=== PATIENT | male | born 1960 | race African-American/Black ===

== ENCOUNTER 2017-03-20 22:40 | Inpatient (IN) | payer OTHER, MEDICARE, MEDICAID ==
[~2017-03-20] VITALS: Ht 165.1 cm; Wt 84.4 kg
--- NOTE | 2017-03-20 22:40 | NUR ---
to bed 3bib paramedics c/o sob and generalized weakness. pt aaox4 no acute distress noted, resp even and unlabored. lung sounds deminishaed bilaterally on auscultation. place pt on cardiac monitoring, continuous pox, o2@2l/nc. pending er md cameron.
--- NOTE | 2017-03-20 22:55 | NUR ---
started sl 18g to L forearm, blood drawn sent to lab.
[2017-03-20 23:17] LABS: BASOPHILS % (AUTO) 0.5 % (0.0-2.0); EOSINOPHILS # (AUTO) 0.4 /CMM (0.0-0.7); HEMATOCRIT 25 % (39-51); HEMOGLOBIN 7.9 g/dL (13.5-17.5); LYMPHOCYTES # (AUTO) 0.5 /CMM (0.8-4.8); LYMPHOCYTES % (AUTO) 10.1 % (20.0-44.0); MEAN CORPUSCULAR HEMOGLOBIN 28 PG (26.0-33.0); MEAN CORPUSCULAR HGB CONC 31 g/dl (31.0-36.0); MEAN CORPUSCULAR VOLUME 90 fL (80-96); MONOCYTES # (AUTO) 0.7 /CMM (0.1-1.30); NEUTROPHILS # (AUTO) 3.6 /CMM (1.8-8.9); NEUTROPHILS % (AUTO) 68.4 % (43.0-81.0); PLATELET COUNT (AUTO) 182 /CMM (150-450); RDW COEFFICIENT OF VARIATION 20.2 (11.5-15.0); WHITE BLOOD COUNT (AUTO) 5.3 K/uL (4.3-11.0)
[2017-03-20 23:30] LABS: SERUM AMMONIA < 10 umol/L (11-32)
[2017-03-20 23:31] LABS: CALCIUM, SERUM 8.3 mg/dL (8.5-10.1); CARBON DIOXIDE 18 mmol/L (21-32); CHLORIDE 109 mmol/L (98-107); CREATININE 3.6 mg/dL (0.6-1.3); GFR 18 mL/min (>60); GLUCOSE 98 mg/dL (74-106); POTASSIUM 5.8 mmol/L (3.5-5.1); SODIUM SERUM 139 mmol/L (136-145); UREA NITROGEN, BLOOD 36 mg/dL (7-18)
[2017-03-20 23:33] LABS: LACTIC ACID 1.2 mmol/L (0.4-2.0)
[2017-03-20 23:34] LABS: TROPONIN I 0.063 ng/mL (0.00-0.056)
[2017-03-20 23:40] LABS: ALANINE AMINOTRANSFERASE 16 U/L (12-78); ALBUMIN 3.1 g/dL (3.4-5.0); ALKALINE PHOSPHATASE 105 U/L (46-116); ASPARTATE AMINOTRANSFERASE 17 U/L (15-37); BILIRUBIN,DIRECT 0.4 mg/dL (0.0-0.2); BILIRUBIN,TOTAL 1.6 mg/dL (0.2-1.0); LIPASE 192 U/L (73-393); TOTAL PROTEIN, SERUM 6.6 g/dL (6.4-8.2)
[2017-03-20 23:41] LABS: INR 1.18 (0.87-1.13); PROTHROMBIN TIME 12.8 SECS (9.5-12.7)
[2017-03-21] VITALS (14 sets, daily range): BP systolic 98–121; BP diastolic 69–92
[2017-03-21] MEDS ORDERED: ASPIRIN 325 MG TABLET PO ONE
[2017-03-21] MEDS ORDERED: SODIUM POLYSTYRENE SULFONATE 15 G/60 ML BOTTLE PO ONE
[2017-03-21 00:06] LABS: B-TYPE NATRIURETIC PEPTIDE 31162 PG/ML (0-125)
[2017-03-21] MEDS ORDERED: SODIUM POLYSTYRENE SULFONATE 15 G/60 ML BOTTLE ONE (00:14)
[2017-03-21] MEDS ORDERED: ASPIRIN 325 MG TABLET ONE (00:14)
--- NOTE | 2017-03-21 00:53 | NUR ---
report called to teleprinter installer JV. pending hospital admission.
[2017-03-21 00:54] LABS: BAND % (MANUAL) 2 % (0.0-5.0); EOSINOPHILS % (MANUAL) 9 % (0-4); LYMPHOCYTES % (MANUAL) 18 % (16-48); MONOCYTES % (MANUAL) 3 % (0-11.0); NEUTROPHILS % (MANUAL) 68 (42-76)
[2017-03-21 00:55] LABS: ANISOCYTOSIS 3+; HYPOCHROMASIA 1+; PLATELET ESTIMATE GIANT PLATELET SEEN
--- NOTE | 2017-03-21 01:08 | NUR ---
gallbladder julian done.
--- NOTE | 2017-03-21 01:13 | NUR ---
er talking to dr. romero regarding pt admission. will transport pt via acls protocol.
[2017-03-21] MEDS ORDERED: IPRA3AMP IH (01:24)
[2017-03-21] MEDS ORDERED: CARV25TA PO (01:24)
[2017-03-21] MEDS ORDERED: AMIO200T2 PO (01:24)
[2017-03-21] MEDS ORDERED: APIX2.5T PO (01:24)
[2017-03-21] MEDS ORDERED: AMLO5TAB2 PO (01:24)
[2017-03-21] MEDS ORDERED: HYDR-4077 PO (01:24)
[2017-03-21] MEDS ORDERED: TAMS0.4C34 PO (01:24)
[2017-03-21] MEDS ORDERED: ALLO300T2 PO (01:24)
[2017-03-21] MEDS ORDERED: POTA20TA83 PO (01:24)
[2017-03-21] MEDS ORDERED: HYDR-3326 PO (01:24)
[2017-03-21] MEDS ORDERED: FAMO20TA8 PO (01:24)
[2017-03-21] MEDS ORDERED: ISOS60TA4 PO (01:24)
[2017-03-21] MEDS ORDERED: IV SET PRIMARY 1 EA INFUS.SET MC ONE (01:25)
[2017-03-21] MEDS ORDERED: PIPERACILLIN /TAZOBACTAM 3.375 G VIAL IV ONE (01:25)
[2017-03-21] MEDS ORDERED: PIPERACILLIN /TAZOBACTAM 3.375 G in IV D5W 50 ML IV ONE (01:30)
--- NOTE | 2017-03-21 02:00 | NUR ---
SANDWICH ARTIST NOTES RECEIVED PT FROM ER, PT IS AWAKE, A/O X 3 , VERBALLY RESPONSIVE. NO DISTRESS, NO SOB NOTED. ON 02 VIA NC @ 3LPM , RAGHAV WELL. O2 SATURATION IS 95 % AT THIS TIME. IV SITE ON LFA G # 18 INTACT AND PATENT . NO S/S OF INFILTRATION NOTED. BODY ASSESSMENT DONE. SKIN IS INTACT. BED ON LOWEST LEVEL. SAFETY PRECAUTIONS OBSERVED. ALL NEEDS ATTENDED. KEPT COMFORTABLE. CALL LIGHT WITHIN REACH . WILL CONTINUE TO MONITOR.
[2017-03-21] MEDS ORDERED: ZOLPIDEM TARTRATE 5 MG TABLET PO PRN (03:00)
[2017-03-21] MEDS ORDERED: ONDANSETRON HCL/PF 4 MG/2 ML VIAL IV PRN (03:00)
[2017-03-21] MEDS: NITROGLYCERIN 30 GM TUBE TP SCH ×4 (06:00→17:31)
--- NOTE | 2017-03-21 06:57 | NUR ---
SENIOR ENGINEERING SPECIALIST NOTES PT IN BED, RESTING COMFORTABLY AT THIS TIME, A/O X 3 , VERBALLY RESPONSIVE. AT BED SIDE. NO DISTRESS, NO SOB NOTED. ON 02 VIA NC @ 3LPM , RAGHAV WELL. O2 SATURATION IS 97 % AT THIS TIME. IV SITE ON LFA G # 18 INTACT AND PATENT . NO S/S OF INFILTRATION NOTED. BED ON LOWEST LEVEL. SAFETY PRECAUTIONS OBSERVED. ALL NEEDS ATTENDED. KEPT COMFORTABLE. CALL LIGHT WITHIN REACH . WILL ENDORSE TO NEXT SHIFT FOR JUNE.
--- NOTE | 2017-03-21 07:30 | NUR ---
RN NOTES RECEIVED PATIENT IN BED A/O X3 WITH HIS AT BED SIDE. NO S/S OF DISTRESS NOTED. DENIES PAIN. ON 2L O2 VIA NC, SATURATING AT 97% RESPIRATIONS EVEN AND UNLABORED. ALL NEEDS MET, KEPT CLEAN AND DRY.
[2017-03-21 08:25] LABS: BASOPHILS # (AUTO) 0.1 /CMM (0.0-0.2); BASOPHILS % (AUTO) 1.1 % (0.0-2.0); EOSINOPHILS # (AUTO) 0.4 /CMM (0.0-0.7); EOSINOPHILS % (AUTO) 8.1 % (0.0-6.0); HEMATOCRIT 24 % (39-51); HEMOGLOBIN 7.5 g/dL (13.5-17.5); LYMPHOCYTES # (AUTO) 0.4 /CMM (0.8-4.8); LYMPHOCYTES % (AUTO) 8.4 % (20.0-44.0); MEAN CORPUSCULAR HEMOGLOBIN 28 PG (26.0-33.0); MEAN CORPUSCULAR HGB CONC 31 g/dl (31.0-36.0); MEAN CORPUSCULAR VOLUME 89 fL (80-96); MONOCYTES # (AUTO) 0.5 /CMM (0.1-1.30); NEUTROPHILS # (AUTO) 3.8 /CMM (1.8-8.9); NEUTROPHILS % (AUTO) 72.4 % (43.0-81.0); PLATELET COUNT (AUTO) 165 /CMM (150-450); RDW COEFFICIENT OF VARIATION 19.7 (11.5-15.0); RED BLOOD CELL COUNT(AUTO) 2.71 MIL/uL (4.5-6.0); WHITE BLOOD COUNT (AUTO) 5.2 K/uL (4.3-11.0)
[2017-03-21 08:33] LABS: INR 1.16 (0.87-1.13); PROTHROMBIN TIME 12.5 SECS (9.5-12.7)
[2017-03-21 08:41] LABS: BILIRUBIN,TOTAL 1.9 mg/dL (0.2-1.0); CALCIUM, SERUM 8.3 mg/dL (8.5-10.1); CREATININE 3.6 mg/dL (0.6-1.3); POTASSIUM 4.9 mmol/L (3.5-5.1); TOTAL PROTEIN, SERUM 6.3 g/dL (6.4-8.2)
[2017-03-21 08:53] LABS: TROPONIN I 0.067 ng/mL (0.00-0.056)
[2017-03-21] MEDS ORDERED: ALLOPURINOL 100 MG TABLET PO SCH (09:00)
[2017-03-21] MEDS: CARVEDILOL 12.5 MG TABLET PO SCH ×2 (09:00→20:31)
[2017-03-21] MEDS: METOLAZONE 2.5 MG TABLET PO SCH ×2 (09:00→09:42)
[2017-03-21] MEDS ORDERED: FUROSEMIDE 20 MG/2 ML VIAL IV SCH (09:00)
[2017-03-21] MEDS: AMLODIPINE BESYLATE 5 MG TABLET PO SCH (09:00)
[2017-03-21] MEDS: ISOSORBIDE MONONITRATE (30MG) 30 MG TAB.SR.24H PO SCH ×2 (09:00→09:42)
[2017-03-21] MEDS: FUROSEMIDE 100 MG/10 ML VIAL IV SCH ×3 (09:41→17:02)
[2017-03-21] MEDS: ASPIRIN 325 MG TABLET PO SCH (09:41)
[2017-03-21] MEDS: FAMOTIDINE (20 MG) 20 MG TABLET PO SCH ×2 (09:46→17:29)
[2017-03-21] MEDS: AMIODARONE HCL 200 MG TABLET PO SCH ×2 (09:46→17:28)
[2017-03-21 10:15] LABS: AMYLASE 42 U/L (25-115); LIPASE 160 U/L (73-393)
--- NOTE | 2017-03-21 12:01 | NUR ---
RN NOTES PATIENT SEEN AND EVALUATED BY DR BAKER, WITH NEW ORDERS, PLAN OF CARE DISCUSSED WITH PATIENT AND . INFORMED CONSENT OBTAINED FOR 1 UNIT OF PRBS AWAITING FOR BLOOD.
--- NOTE | 2017-03-21 12:43 | NUR ---
RN MS NOTES RECEIVED DIET ORDER FROM , PT WITH ANEMIA AND LOW H/H, PER MALATHI REVELES TO CONTINUE WITH ELIQUIS.
[2017-03-21] MEDS: APIXABAN 2.5 MG TABLET PO SCH ×2 (12:48→17:28)
[2017-03-21] MEDS: hydrALAZINE HCL 50 MG TABLET PO SCH ×2 (13:00→20:31)
--- NOTE | 2017-03-21 13:25 | NUR ---
RN MS NOTES HYDRALAZINE HELD DUE TO LASIX 80MG ADMINISTRATION . PATIENTS' VITAL BP 125/85 WITHIN NORMAL LIMITS CONCERNED WITH POSSIBILITY OF PATIENT BECOMING HYPOTENSIVE.
[2017-03-21] MEDS: IPRATROPIUM NEB FS 0.5 MG/2.5 ML AMPUL.NEB NEB PRN (14:13)
[2017-03-21] MEDS ORDERED: IV NS 0.9% 250 ML IV ONE (14:31)
[2017-03-21] MEDS ORDERED: BLOOD IV SET 1 EA INFUS.SET MC ONE (14:31)
--- NOTE | 2017-03-21 15:38 | NUR ---
BLOOD TRANSFUSION STARTED AT 1538, VERIFIED WITH ANOTHER RN. WRIST BAND CHECKED, BLOOD CHECKED. VITALS STABLE, TOLERATING WELL NO S/S OF REACTIONS NOTED. VS STABLE AFTER 15 MIN WILL CONTINUE TO MONITOR.
[2017-03-21] MEDS: TAMSULOSIN 0.4 MG CAP.SR.24H PO SCH (17:29)
--- NOTE | 2017-03-21 18:55 | NUR ---
RN MS CLOSING NOTES PATIENT TOLERATED BLOOD TRANSFUSION WELL, NO S/S OF REACTIONS NOTED. RECEIVED 3 DOSES OF LASIX 80MG IV PUSH, WITH TOTAL OUTPUT OF 2450 FOR THE SHIFT. RESPIRATIONS EVEN AND UNLABORED, NO SOB NOTED, RESIDENT DENIES PAIN, TOLERATED DIET WELL. ALL NEEDS MET, KEPT CLEAN AND DRY. CALL LIGHT WITHIN REACH.
[2017-03-22] MEDS: NITROGLYCERIN 30 GM TUBE TP SCH ×4 (06:14→18:00)
[2017-03-22] MEDS: hydrALAZINE HCL 50 MG TABLET PO SCH ×3 (06:20→20:11)
[2017-03-22 06:57] LABS: BASOPHILS % (AUTO) 0.1 % (0.0-2.0); EOSINOPHILS # (AUTO) 0.5 /CMM (0.0-0.7); EOSINOPHILS % (AUTO) 8.2 % (0.0-6.0); HEMATOCRIT 28 % (39-51); HEMOGLOBIN 8.9 g/dL (13.5-17.5); LYMPHOCYTES # (AUTO) 0.4 /CMM (0.8-4.8); LYMPHOCYTES % (AUTO) 7.4 % (20.0-44.0); MEAN CORPUSCULAR HEMOGLOBIN 29 PG (26.0-33.0); MEAN CORPUSCULAR HGB CONC 32 g/dl (31.0-36.0); MEAN CORPUSCULAR VOLUME 90 fL (80-96); MONOCYTES # (AUTO) 0.6 /CMM (0.1-1.30); MONOCYTES % (AUTO) 9.8 % (2.0-12.0); NEUTROPHILS # (AUTO) 4.5 /CMM (1.8-8.9); NEUTROPHILS % (AUTO) 74.5 % (43.0-81.0); PLATELET COUNT (AUTO) 186 /CMM (150-450); RDW COEFFICIENT OF VARIATION 20.5 (11.5-15.0); RED BLOOD CELL COUNT(AUTO) 3.11 MIL/uL (4.5-6.0)
--- NOTE | 2017-03-22 07:30 | NUR ---
RN MS NOTES RECEIVED PATIENT IN BED AWAKE, A/O X 3 AND VERBALLY RESPONSIVE. NO ACUTE DISTRESS NOTED, NO SOB, DENIES PAIN. IV LINE PATENT WITH NO S/S OF INFILTRATION. ALL NEEDS ATTENDED TO, KEPT CLEAN AND DRY.
[2017-03-22 07:43] LABS: TROPONIN I 0.081 ng/mL (0.00-0.056)
[2017-03-22 08:00] VITALS: BP 96/69
[2017-03-22 08:09] LABS: CALCIUM, SERUM 8.5 mg/dL (8.5-10.1); CREATININE 3.5 mg/dL (0.6-1.3); MAGNESIUM 1.6 mg/dL (1.8-2.4); PHOSPHORUS 3.7 mg/dL (2.5-4.9); POTASSIUM 3.8 mmol/L (3.5-5.1)
[2017-03-22] MEDS: FUROSEMIDE 100 MG/10 ML VIAL IV SCH ×3 (08:30→16:30)
[2017-03-22] MEDS: AMLODIPINE BESYLATE 5 MG TABLET PO SCH (09:00)
[2017-03-22] MEDS: CARVEDILOL 12.5 MG TABLET PO SCH ×3 (09:00→21:00)
[2017-03-22] MEDS: ISOSORBIDE MONONITRATE (30MG) 30 MG TAB.SR.24H PO SCH (09:00)
[2017-03-22] MEDS: METOLAZONE 2.5 MG TABLET PO SCH (09:00)
--- NOTE | 2017-03-22 09:00 | NUR ---
RN MS NOTES 0830 IV LASIX 80MG DOSE HELD DUE TO BP OF 96/69, WILL CONTINUE TO MONITOR BP AND REASSESS FOR NEXT SCHEDULED DOSE.
[2017-03-22] MEDS: ASPIRIN 325 MG TABLET PO SCH (09:46)
[2017-03-22] MEDS: APIXABAN 2.5 MG TABLET PO SCH ×2 (09:46→17:05)
[2017-03-22] MEDS: AMIODARONE HCL 200 MG TABLET PO SCH ×2 (09:47→17:05)
[2017-03-22] MEDS: ALLOPURINOL 100 MG TABLET PO SCH (09:47)
[2017-03-22] MEDS: FAMOTIDINE (20 MG) 20 MG TABLET PO SCH ×2 (09:47→17:06)
[2017-03-22 10:28] LABS: ALBUMIN 3.3 g/dL (3.4-5.0); BILIRUBIN,TOTAL 3.2 mg/dL (0.2-1.0); TOTAL PROTEIN, SERUM 6.9 g/dL (6.4-8.2)
[2017-03-22] MEDS ORDERED: IV SET PRIMARY PUMP SET 1 EA INFUS.SET MC ONE (11:39)
[2017-03-22] MEDS: Magnesium 1GM/D5W 100ML PREMIX 100 ML IV SCH ×2 (11:52→13:01)
--- NOTE | 2017-03-22 13:30 | NUR ---
RN MS NOTES HYDRALAZINE HELD DUE TO BP OF 90/60, NO DISTRESS NOTED WILL CONTINUE TO MONITOR BP.
[2017-03-22 14:40] VITALS: BP 102/70
--- NOTE | 2017-03-22 14:41 | NUR ---
RN MS NOTES PT IN BED, NOT IN PAIN OR DISTRESS, DR. SR INFORMED OF PT'S LOW BLOOD PRESSURE, PER MD, OK TO GIVE LASIX AND HOLD THE NEXT ONE, NOTED AND CARRIED OUT.
--- NOTE | 2017-03-22 15:28 | NUR ---
RN MS NOTES PATIENT IN BED, AWAKE, ALERT AND VERBALLY RESPONSIVE. NO ACUTE DISTRESS NOTED, DENIES PAIN OR SOB. PATIENT HAD MAGNESIUM LEVEL OF 1.6, 2 100ML BAGS OF MAGNESIUM GIVEN. BP HAS BEEN LOW DURING SHIFT, PATIENT ASYMPTOMATIC, WILL CONTINUE TO MONITOR BP. MD AWARE OF LOW BP. ALL NEEDS MET, KEPT CLEAN AND DRY. CALL LIGHT WITHIN REACH.
[2017-03-22 16:00] VITALS: BP 122/86
[2017-03-22] MEDS: TAMSULOSIN 0.4 MG CAP.SR.24H PO SCH (17:06)
--- NOTE | 2017-03-22 18:14 | NUR ---
RN MS NOTES THIRD DOSE OF LASIX HELD PER MDS ORDER, NITRO PATCH HELD WELL DUE TO PATIENT RECEIVING 8O MG OF LASIX, AND PATIENTS' BP HAS BEEN LOW DURING SHIFT.
--- NOTE | 2017-03-22 18:58 | NUR ---
RN MS CLOSING NOTES PATIENT IN BED AWAKE, AND VERBALLY RESPONSIVE, DENIES PAIN OR SOB. PATIENT WAS NOTED WITH LOW BP, MD AWARE, NO APPARENT DISTRESS NOTED. RECEIVED 200MLS OF MAGNESIUM DUE TO LEVEL OF 1.6. IV LINE PATENT NO S/S OF INFILTRATION NOTED. ALL NEEDS MET, KEPT CLEAN AND DRY.
--- NOTE | 2017-03-22 19:05 | NUR ---
RN NOTE RECEIVED REPORT. PT AAOX3, NO C/O CP OR SOB. DENIES PAIN/DISCOMFORT AT THIS TIME. LFA INTACT AND PATENT. CALL LIGHT IN REACH, WILL CONT TO MONITOR.
[2017-03-22 20:00] VITALS: BP 111/83
[2017-03-23] MEDS: hydrALAZINE HCL 50 MG TABLET PO SCH ×3 (05:00→20:54)
[2017-03-23] MEDS: NITROGLYCERIN 30 GM TUBE TP SCH ×4 (05:22→17:47)
--- NOTE | 2017-03-23 06:51 | NUR ---
RN NOTE NO SIGNIFICANT CHANGES THIS SHIFT - PT SLEPT WELL AT NIGHT. NO S/S OF ANY DISTRESS AT THIS TIME. ON NC 2L. DENIES CP/SOB. IV INTACT AND PATENT S/L.CALL LIGHT IN REACH, WILL F/U WITH DAY SHIFT FOR JUNE.
[2017-03-23 07:22] LABS: BASOPHILS % (AUTO) 0.3 % (0.0-2.0); EOSINOPHILS # (AUTO) 0.5 /CMM (0.0-0.7); EOSINOPHILS % (AUTO) 7.1 % (0.0-6.0); HEMATOCRIT 27 % (39-51); HEMOGLOBIN 8.4 g/dL (13.5-17.5); LYMPHOCYTES # (AUTO) 0.6 /CMM (0.8-4.8); LYMPHOCYTES % (AUTO) 8.1 % (20.0-44.0); MEAN CORPUSCULAR HEMOGLOBIN 28 PG (26.0-33.0); MEAN CORPUSCULAR HGB CONC 31 g/dl (31.0-36.0); MEAN CORPUSCULAR VOLUME 89 fL (80-96); MONOCYTES # (AUTO) 0.8 /CMM (0.1-1.30); MONOCYTES % (AUTO) 11.3 % (2.0-12.0); NEUTROPHILS # (AUTO) 5.2 /CMM (1.8-8.9); NEUTROPHILS % (AUTO) 73.2 % (43.0-81.0); PLATELET COUNT (AUTO) 187 /CMM (150-450); RDW COEFFICIENT OF VARIATION 20.2 (11.5-15.0); RED BLOOD CELL COUNT(AUTO) 3.03 MIL/uL (4.5-6.0); WHITE BLOOD COUNT (AUTO) 7.1 K/uL (4.3-11.0)
--- NOTE | 2017-03-23 07:30 | NUR ---
RN OPEN NOTES RECEIVED REPORT FROM ATTENDANCE CLERK NURSE. PATIENT IS SITTING IN A CHAIR. PAIN LEVEL 2/10. NO SIGNS AND SYMPTOMS OF DISTRESS. ALERT AND ORIENTED TO TIME, NAME AND PLACE. WILL CONTINUE TO MONITOR AND ASSESS PATIENT.
[2017-03-23 07:41] LABS: BILIRUBIN,TOTAL 2.7 mg/dL (0.2-1.0); CALCIUM, SERUM 8.3 mg/dL (8.5-10.1); CREATININE 3.2 mg/dL (0.6-1.3); MAGNESIUM 1.8 mg/dL (1.8-2.4); PHOSPHORUS 3.5 mg/dL (2.5-4.9); POTASSIUM 3.4 mmol/L (3.5-5.1); TOTAL PROTEIN, SERUM 6.6 g/dL (6.4-8.2)
[2017-03-23 08:00] VITALS: BP 120/94
[2017-03-23] MEDS: METOLAZONE 2.5 MG TABLET PO SCH (09:09)
[2017-03-23] MEDS: ISOSORBIDE MONONITRATE (30MG) 30 MG TAB.SR.24H PO SCH (09:09)
[2017-03-23] MEDS: ASPIRIN 325 MG TABLET PO SCH (09:09)
[2017-03-23] MEDS: APIXABAN 2.5 MG TABLET PO SCH ×2 (09:09→17:46)
[2017-03-23] MEDS: AMLODIPINE BESYLATE 5 MG TABLET PO SCH (09:10)
[2017-03-23] MEDS: AMIODARONE HCL 200 MG TABLET PO SCH ×2 (09:10→17:46)
[2017-03-23] MEDS: FAMOTIDINE (20 MG) 20 MG TABLET PO SCH ×2 (09:11→17:46)
[2017-03-23] MEDS: CARVEDILOL 12.5 MG TABLET PO SCH ×2 (09:11→20:54)
[2017-03-23] MEDS: ALLOPURINOL 100 MG TABLET PO SCH (09:11)
[2017-03-23 16:00] VITALS: BP 100/69
[2017-03-23] MEDS ORDERED: EPOETIN ALFA (20,000 UNIT) 20,000 UNIT/ML VIAL SQ ONE (16:30)
[2017-03-23] MEDS: TAMSULOSIN 0.4 MG CAP.SR.24H PO SCH (17:46)
--- NOTE | 2017-03-23 19:25 | NUR ---
RN NOTE RECEIVED REPORT. PT AAOX4, NO C/O OF [AIN OR DISCOMFORT AT THIS TIME. DENIES CP/SOB. BREATHING NON-LABORED AND EVEN. IV INTACT AND PATENT. CALL LIGHT IN REACH, WILL CONT TO MONITOR.
[2017-03-23 20:00] VITALS: BP 93/69
[2017-03-24] MEDS ORDERED: ACETAMINOPHEN 325 MG TABLET ONE (01:30)
[2017-03-24] MEDS ORDERED: ACETAMINOPHEN 650 MG/20.3 ML UDC PO PRN (01:30)
[2017-03-24] MEDS: ALBUTEROL FS 2.5 MG/3 ML VIAL.NEB NEB PRN ×2 (01:57→11:22)
[2017-03-24] MEDS: IPRATROPIUM NEB FS 0.5 MG/2.5 ML AMPUL.NEB NEB PRN ×2 (01:57→11:22)
[2017-03-24] MEDS: hydrALAZINE HCL 50 MG TABLET PO SCH ×3 (05:00→20:09)
[2017-03-24] MEDS: NITROGLYCERIN 30 GM TUBE TP SCH ×4 (05:31→17:42)
--- NOTE | 2017-03-24 06:47 | NUR ---
RN NOTE NO SIGNIFICANT CHANGES OVERNIGHT. PT RESTING IN BED, AWAKE AND ALERT. DENIES SOB/CP. BREATHING NON-LABORED AND EVEN. IV INTACT AND PATENT. CALLLIGHT IN REACH, WILL F/U WITH DAYSHIFT FOR JUNE.
--- NOTE | 2017-03-24 06:51 | NUR ---
RN NOTE PT REFUSING TO DRAW BLOOD DESPITE TEACHING AND ENCOURAGEMENT X3. WILL CONT TO MONITOR.
--- NOTE | 2017-03-24 07:30 | NUR ---
MS/RN OPENING NOTE PT. IS SLEEPING IN BED. NO S/S OF SOB, PT. IS BREATHING ON OXYGEN WITH NASAL CANNULA WITHOUT LABORED BREATHING. NO S/S OF DISTRESS. PT. HAS URINAL AND WALKER NEAR BEDSIDE. BED IS IN LOW POSITION, AND CALL LIGHT WITHIN REACH.
[2017-03-24 08:00] VITALS: BP 113/79
[2017-03-24] MEDS: FUROSEMIDE 100 MG/10 ML VIAL IV SCH ×2 (10:02→15:04)
[2017-03-24] MEDS: FAMOTIDINE (20 MG) 20 MG TABLET PO SCH ×2 (10:02→17:39)
[2017-03-24] MEDS: ASPIRIN 325 MG TABLET PO SCH (10:02)
[2017-03-24] MEDS: METOLAZONE 2.5 MG TABLET PO SCH (10:03)
[2017-03-24] MEDS: ISOSORBIDE MONONITRATE (30MG) 30 MG TAB.SR.24H PO SCH (10:04)
[2017-03-24] MEDS: ALLOPURINOL 100 MG TABLET PO SCH (10:04)
[2017-03-24] MEDS: AMLODIPINE BESYLATE 5 MG TABLET PO SCH (10:05)
[2017-03-24] MEDS: AMIODARONE HCL 200 MG TABLET PO SCH ×2 (10:05→17:39)
[2017-03-24] MEDS: CARVEDILOL 12.5 MG TABLET PO SCH ×2 (10:06→20:10)
[2017-03-24] MEDS: APIXABAN 2.5 MG TABLET PO SCH ×2 (10:32→17:39)
[2017-03-24 10:46] LABS: CALCIUM, SERUM 8.3 mg/dL (8.5-10.1); CREATININE 3.2 mg/dL (0.6-1.3); POTASSIUM 3.1 mmol/L (3.5-5.1)
[2017-03-24 10:51] LABS: ALBUMIN 2.9 g/dL (3.4-5.0); BILIRUBIN,TOTAL 1.9 mg/dL (0.2-1.0); MAGNESIUM 1.9 mg/dL (1.8-2.4); PHOSPHORUS 3.6 mg/dL (2.5-4.9); TOTAL PROTEIN, SERUM 6.5 g/dL (6.4-8.2)
[2017-03-24 10:58] LABS: BASOPHILS # (AUTO) 0.1 /CMM (0.0-0.2); BASOPHILS % (AUTO) 1.1 % (0.0-2.0); EOSINOPHILS # (AUTO) 0.4 /CMM (0.0-0.7); EOSINOPHILS % (AUTO) 7.8 % (0.0-6.0); HEMATOCRIT 27 % (39-51); HEMOGLOBIN 8.4 g/dL (13.5-17.5); LYMPHOCYTES # (AUTO) 0.6 /CMM (0.8-4.8); LYMPHOCYTES % (AUTO) 11.2 % (20.0-44.0); MEAN CORPUSCULAR HEMOGLOBIN 28 PG (26.0-33.0); MEAN CORPUSCULAR HGB CONC 32 g/dl (31.0-36.0); MEAN CORPUSCULAR VOLUME 89 fL (80-96); MONOCYTES # (AUTO) 0.7 /CMM (0.1-1.30); MONOCYTES % (AUTO) 13.8 % (2.0-12.0); NEUTROPHILS # (AUTO) 3.3 /CMM (1.8-8.9); NEUTROPHILS % (AUTO) 66.1 % (43.0-81.0); PLATELET COUNT (AUTO) 196 /CMM (150-450); RDW COEFFICIENT OF VARIATION 20.2 (11.5-15.0); RED BLOOD CELL COUNT(AUTO) 3.01 MIL/uL (4.5-6.0)
[2017-03-24] MEDS ORDERED: POTASSIUM CHLORIDE 20 MEQ TAB.PRT.SR PO ONE (14:00)
[2017-03-24] MEDS ORDERED: SOD FERRIC GLUC 125 MG in IV NS 0.9% 100 ML IV SCH (14:00)
[2017-03-24] MEDS ORDERED: IV SET PRIMARY PUMP SET 1 EA INFUS.SET MC ONE (14:57)
[2017-03-24 16:00] VITALS: BP 97/71
[2017-03-24] MEDS: TAMSULOSIN 0.4 MG CAP.SR.24H PO SCH (17:39)
--- NOTE | 2017-03-24 19:45 | NUR ---
MS/RN CLOSING NOTE PT. IS LYING IN BED A&OX4. PT. IS ON BEDPAN. NO S/S OF DISTRESS, NO SOB. PT. IS BREATHING ON OXYGEN WITH NASAL CANNULA UNLABORED. PT. HAS WALKER, AND URINAL NEAR BEDSIDE. BED IS IN LOW POSITION, BED ALARM IS ON, CALL LIGHT WITHIN REACH, AND ALL NEEDS ATTENDED TO. WILL ENDORSE REPORT TO TELEPHONE CLERK NURSE.
--- NOTE | 2017-03-24 19:45 | NUR ---
MS/RN OPENING NOTES PATIENT IN BED, ALERTX2. ABLE TO VERBALIZE NEEDS. REQUEST FOR BED MOODY. OUTSOLE SKIVER ASSISTED WITH CARE. AM RN ENDORSE CARE AND JUNE. TO MONITOR B/P B/P IS LOW, COLLECT STOOL AND TO WEIGH PATIENT, REQUIRE MAXIMUM ASSISTANCE PATIENT IS WEAK . WILL CONTINUE TO MONITOR.
--- NOTE | 2017-03-24 19:53 | NUR ---
MS/RN NOTES STOOL #3 COLLECTED CALLED LAB FOR BURNER OPERATOR.
[2017-03-24 20:00] VITALS: BP 102/78
--- NOTE | 2017-03-24 21:18 | NUR ---
MS/RN NOTES PATIENT REQUESTED FOR SLEEPING PILL. UNABLE TO SLEEP. AMBIEN 5MG PO GIVEN
--- NOTE | 2017-03-25 00:07 | NUR ---
MS/RN NOTES EAR PLUGS REQUESTED BY ME FOR OTHER PATIENT SNORING.
[2017-03-25] MEDS: NITROGLYCERIN 30 GM TUBE TP SCH ×3 (00:20→12:14)
[2017-03-25] MEDS: hydrALAZINE HCL 50 MG TABLET PO SCH ×2 (05:00→13:00)
--- NOTE | 2017-03-25 05:11 | NUR ---
MS/RN NOTES PATIENT B/P CHECK AT 113/71. WITH MD ORDER TO HOLD IF B/P BELOW 110 FOR THE NITRO PATCH. PATIENT INFORMED BUT REFUSED TO HAVE BEC B/P 113/71.
--- NOTE | 2017-03-25 06:06 | NUR ---
MS/RN NOTES PATIENT AWAKE, ALERTX2. ABLE TO VERBALIZE NEEDS AT ALL TIMES. COOPERATIVE TO CARE. NO S/S OF SOB OR DISTRESS. B/P IN LOW LEVEL . HAD SLEEP MEDICATION ABLE TO SLEEP 4 TO 5 HOURS BUT LIGHT SLEEPER. [facility] SAMPLE NO 3 COLLECTED. WEIGHED AT 185.9LBS. ON FLUID RESTRICTION 1500ML. POTASSIUM LEVEL AT 3.1 WILL RECHECK m lBS FOR LATEST RESULT.WILL ENDORSE TO AM RN RE JUNE.
[2017-03-25 07:07] LABS: BASOPHILS % (AUTO) 0.5 % (0.0-2.0); EOSINOPHILS # (AUTO) 0.5 /CMM (0.0-0.7); EOSINOPHILS % (AUTO) 9.9 % (0.0-6.0); HEMATOCRIT 27 % (39-51); HEMOGLOBIN 8.6 g/dL (13.5-17.5); LYMPHOCYTES # (AUTO) 0.7 /CMM (0.8-4.8); LYMPHOCYTES % (AUTO) 13.2 % (20.0-44.0); MEAN CORPUSCULAR HEMOGLOBIN 29 PG (26.0-33.0); MEAN CORPUSCULAR HGB CONC 32 g/dl (31.0-36.0); MEAN CORPUSCULAR VOLUME 89 fL (80-96); MONOCYTES # (AUTO) 0.8 /CMM (0.1-1.30); MONOCYTES % (AUTO) 14.8 % (2.0-12.0); NEUTROPHILS # (AUTO) 3.4 /CMM (1.8-8.9); NEUTROPHILS % (AUTO) 61.6 % (43.0-81.0); PLATELET COUNT (AUTO) 212 /CMM (150-450); RDW COEFFICIENT OF VARIATION 20.5 (11.5-15.0); WHITE BLOOD COUNT (AUTO) 5.5 K/uL (4.3-11.0)
[2017-03-25 07:37] LABS: CALCIUM, SERUM 8.5 mg/dL (8.5-10.1); CREATININE 3.2 mg/dL (0.6-1.3); MAGNESIUM 1.7 mg/dL (1.8-2.4); PHOSPHORUS 3.5 mg/dL (2.5-4.9); POTASSIUM 3.3 mmol/L (3.5-5.1)
[2017-03-25 08:00] VITALS: BP 114/82
[2017-03-25] MEDS ORDERED: FUROSEMIDE 80 MG TABLET PO SCH (09:00)
[2017-03-25] MEDS ORDERED: POTASSIUM CHLORIDE 20 MEQ TAB.PRT.SR PO SCH (09:00)
[2017-03-25] MEDS: METOLAZONE 2.5 MG TABLET PO SCH (09:16)
[2017-03-25] MEDS: AMLODIPINE BESYLATE 5 MG TABLET PO SCH (09:17)
[2017-03-25] MEDS: APIXABAN 2.5 MG TABLET PO SCH (09:18)
[2017-03-25] MEDS: FAMOTIDINE (20 MG) 20 MG TABLET PO SCH (09:18)
[2017-03-25] MEDS: ISOSORBIDE MONONITRATE (30MG) 30 MG TAB.SR.24H PO SCH (09:20)
[2017-03-25] MEDS: ASPIRIN 325 MG TABLET PO SCH (09:20)
[2017-03-25] MEDS: AMIODARONE HCL 200 MG TABLET PO SCH (09:21)
[2017-03-25] MEDS: ALLOPURINOL 100 MG TABLET PO SCH (09:22)
[2017-03-25] MEDS: CARVEDILOL 12.5 MG TABLET PO SCH (09:22)
[2017-03-25 12:14] VITALS: BP 101/74
--- NOTE | 2017-03-25 14:37 | NUR ---
ms/rn: notes all discharge instruction gave to patient and SNF RN doping supervisor at [facility]. patient verbalize understanding the discharge instruction, IV peripheral line removed, no bleeding noted, all patient's belongings returned and signed by patient. discharge skin assessment done, no pressure ulcer noted at sacral or bilateral heels.patient is picked up by ambulance staff via gurney with stable condition. patient denies chest pain, no shortness of breath noted.
== END 2017-03-25 15:00 | DRG 291 ==
LOC: ER 22:43 → TELE 03-21 01:44 → MED 03-21 09:22
PROVIDERS: ADMIT Internal Medicine; ATTEND Internal Medicine Nephrology
PROC: 30233N1 Transfusion of Nonautologous Red Blood Cells into Peripheral Vein, Percutaneous Approach (ICD-10-PCS; principal; 2017-03-21)
DX: I13.0 Hypertensive heart and chronic kidney disease with heart failure and stage 1 through stage 4 chronic kidney disease, or unspecified chronic kidney disease (principal); I50.23 Acute on chronic systolic (congestive) heart failure; E87.2 Acidosis; N17.9 Acute kidney failure, unspecified; R18.8 Other ascites; N18.4 Chronic kidney disease, stage 4 (severe); K80.20 Calculus of gallbladder without cholecystitis without obstruction; E87.5 Hyperkalemia; N40.0 Benign prostatic hyperplasia without lower urinary tract symptoms; K21.9 Gastro-esophageal reflux disease without esophagitis; D64.9 Anemia, unspecified; D72.1 Eosinophilia; E87.6 Hypokalemia; I27.2 Other secondary pulmonary hypertension; I34.0 Nonrheumatic mitral (valve) insufficiency; I70.0 Atherosclerosis of aorta; I77.810 Thoracic aortic ectasia; K42.9 Umbilical hernia without obstruction or gangrene; M10.9 Gout, unspecified
CPT/HCPCS: 36415; 71010-TC; 76705-TC; 80048-TC; 80053-TC; 80061-TC; 80076-TC; 82140-TC; 82150-TC; 82728-TC; 83540-TC; 83605-TC; 83690-TC; 83735-TC; 83880; 84100-TC; 84484-TC; 85025-TC; 85610-TC; 85730-TC; 86850-TC; 86921-TC; 87040-TC; 87081-TC; 87177; 87209; 93307-TC; 94799-TC; A4606; J0885; J1940; J2543; J2916; J3475; J7030; J7050; P9016-BL; Z7610

== ENCOUNTER 2017-06-18 21:05 | Inpatient (IN) | payer OTHER, MEDICARE, MEDICAID ==
[~2017-06-18] VITALS: Ht 182.9 cm; Wt 79.4 kg
[~2017-06-18 21:05] MED LIST: ALLO300T2 PO; AMIO200T2 PO; AMLO5TAB2 PO; APIX2.5T PO; CARV25TA PO; FAMO20TA8 PO; HYDR-3326 PO; HYDR-4077 PO; IPRA3AMP IH; ISOS60TA4 PO; POTA20TA83 PO; TAMS0.4C34 PO
[2017-06-18] MEDS ORDERED: ONDANSETRON HCL/PF 4 MG/2 ML VIAL ONE (21:58)
[2017-06-18] MEDS ORDERED: IV NS 0.9% 1,000 ML BAG IV ONE (22:00)
[2017-06-18] MEDS ORDERED: ONDANSETRON HCL/PF 4 MG/2 ML VIAL IVP ONE (22:00)
[2017-06-18 22:06] LABS: BASOPHILS % (AUTO) 0.6 % (0.0-2.0); EOSINOPHILS # (AUTO) 0.3 /CMM (0.0-0.7); EOSINOPHILS % (AUTO) 5.3 % (0.0-6.0); HEMATOCRIT 31 % (39-51); HEMOGLOBIN 9.8 g/dL (13.5-17.5); LYMPHOCYTES # (AUTO) 0.6 /CMM (0.8-4.8); MEAN CORPUSCULAR HEMOGLOBIN 30 PG (26.0-33.0); MEAN CORPUSCULAR HGB CONC 32 g/dl (31.0-36.0); MEAN CORPUSCULAR VOLUME 94 fL (80-96); MONOCYTES # (AUTO) 0.4 /CMM (0.1-1.30); MONOCYTES % (AUTO) 9.5 % (2.0-12.0); NEUTROPHILS # (AUTO) 3.4 /CMM (1.8-8.9); NEUTROPHILS % (AUTO) 72.6 % (43.0-81.0); PLATELET COUNT (AUTO) 199 /CMM (150-450); RDW COEFFICIENT OF VARIATION 18.9 (11.5-15.0); RED BLOOD CELL COUNT(AUTO) 3.26 MIL/uL (4.5-6.0); WHITE BLOOD COUNT (AUTO) 4.7 K/uL (4.3-11.0)
[2017-06-18 22:16] LABS: CALCIUM, SERUM 8.7 mg/dL (8.5-10.1); CREATININE 3.7 mg/dL (0.6-1.3); POTASSIUM 5.3 mmol/L (3.5-5.1)
[2017-06-18 22:20] LABS: INR 1.13 (0.87-1.13); PROTHROMBIN TIME 12.2 SECS (9.5-12.7)
[2017-06-18 22:24] LABS: ALBUMIN 3.6 g/dL (3.4-5.0); BILIRUBIN,DIRECT 0.3 mg/dL (0.0-0.2); BILIRUBIN,TOTAL 1.7 mg/dL (0.2-1.0); TOTAL PROTEIN, SERUM 7.1 g/dL (6.4-8.2)
[2017-06-18] MEDS ORDERED: ACET-868 PO (22:49)
[2017-06-18] MEDS ORDERED: ONDA4TAB5 PO (22:49)
[2017-06-18] MEDS ORDERED: FURO-145 PO (22:49)
[2017-06-18] MEDS ORDERED: MEGE400O PO (22:49)
[2017-06-18] MEDS ORDERED: METO5TAB7 PO (22:49)
[2017-06-18] MEDS ORDERED: AMLO5TAB4 PO (22:49)
[2017-06-18] MEDS ORDERED: FERR325T28 PO (22:49)
[2017-06-18] MEDS ORDERED: FAMO-131 PO (22:49)
[2017-06-18] MEDS ORDERED: BISA-79 PO (22:49)
[2017-06-18] MEDS ORDERED: NA P133E RC (22:49)
[2017-06-18] MEDS ORDERED: MAG30ORA PO (22:49)
[2017-06-18] MEDS ORDERED: ASPI81TA2 PO (22:49)
[2017-06-18] MEDS ORDERED: SERT25TA PO (22:49)
[2017-06-19] VITALS: BP 122/94
[2017-06-19 00:30] VITALS: BP 122/94
[2017-06-19] MEDS ORDERED: ALBUTEROL FS 2.5 MG/3 ML VIAL.NEB NEB PRN (04:00)
[2017-06-19] MEDS ORDERED: HYDROCODONE/APAP 5/325MG 1 EACH TABLET PO PRN (04:00)
[2017-06-19] MEDS ORDERED: IPRATROPIUM NEB FS 0.5 MG/2.5 ML AMPUL.NEB NEB PRN (04:00)
[2017-06-19 07:11] LABS: BASOPHILS % (AUTO) 0.3 % (0.0-2.0); EOSINOPHILS # (AUTO) 0.2 /CMM (0.0-0.7); EOSINOPHILS % (AUTO) 5.2 % (0.0-6.0); HEMATOCRIT 29 % (39-51); HEMOGLOBIN 9.5 g/dL (13.5-17.5); LYMPHOCYTES # (AUTO) 0.6 /CMM (0.8-4.8); LYMPHOCYTES % (AUTO) 14.4 % (20.0-44.0); MEAN CORPUSCULAR HEMOGLOBIN 30 PG (26.0-33.0); MEAN CORPUSCULAR HGB CONC 32 g/dl (31.0-36.0); MEAN CORPUSCULAR VOLUME 94 fL (80-96); MONOCYTES # (AUTO) 0.6 /CMM (0.1-1.30); MONOCYTES % (AUTO) 14.5 % (2.0-12.0); NEUTROPHILS # (AUTO) 2.8 /CMM (1.8-8.9); NEUTROPHILS % (AUTO) 65.6 % (43.0-81.0); PLATELET COUNT (AUTO) 140 /CMM (150-450); RDW COEFFICIENT OF VARIATION 18.8 (11.5-15.0); RED BLOOD CELL COUNT(AUTO) 3.14 MIL/uL (4.5-6.0); WHITE BLOOD COUNT (AUTO) 4.3 K/uL (4.3-11.0)
[2017-06-19 07:32] LABS: INR 1.15 (0.87-1.13); PROTHROMBIN TIME 12.4 SECS (9.5-12.7)
[2017-06-19 07:44] LABS: CREATININE 3.6 mg/dL (0.6-1.3); POTASSIUM 4.5 mmol/L (3.5-5.1)
[2017-06-19 08:00] VITALS: BP 131/97
[2017-06-19] MEDS ORDERED: BISA10SU8 RC (08:01)
[2017-06-19] MEDS ORDERED: MAGN400O6 PO (08:01)
[2017-06-19] MEDS ORDERED: ACETAMINOPHEN 325 MG TABLET PO PRN (09:30)
[2017-06-19] MEDS ORDERED: NA PHOS,M-B/NA PHOS,DI-BA 1 EA ENEMA RC PRN (09:30)
[2017-06-19] MEDS ORDERED: BISACODYL SUPP (10 MG) 10 MG/SUPP.RECT SUPP.RECT RC PRN (09:30)
[2017-06-19] MEDS ORDERED: ONDANSETRON 4 MG TAB.RAPDIS PO PRN (09:30)
[2017-06-19] MEDS ORDERED: MAGNESIUM HYDROXIDE 30 ML UDC PO PRN (09:30)
[2017-06-19] MEDS: AMIODARONE HCL 200 MG TABLET PO SCH ×2 (09:42→16:49)
[2017-06-19] MEDS: ISOSORBIDE MONONITRATE (30MG) 30 MG TAB.SR.24H PO SCH (11:35)
[2017-06-19] MEDS: CARVEDILOL 12.5 MG TABLET PO SCH ×2 (11:35→21:00)
[2017-06-19] MEDS: METOLAZONE 2.5 MG TABLET PO SCH (11:36)
[2017-06-19] MEDS: SERTRALINE HCL 25 MG TABLET PO SCH (11:36)
[2017-06-19] MEDS: FAMOTIDINE (20 MG) 20 MG TABLET PO SCH ×2 (11:36→21:48)
[2017-06-19] MEDS: AMLODIPINE BESYLATE 5 MG TABLET PO SCH (11:36)
[2017-06-19] MEDS: FERROUS SULFATE (325 MG) 325 MG/TAB TABLET PO SCH (11:36)
[2017-06-19] MEDS: FUROSEMIDE 20 MG TABLET PO SCH (11:36)
[2017-06-19] MEDS: ALLOPURINOL 100 MG TABLET PO SCH (11:36)
[2017-06-19] MEDS: ASPIRIN 81 MG TAB.CHEW PO SCH (11:36)
[2017-06-19] MEDS: MEGESTROL ACETATE SUSP 400 MG/10 ML UDC PO SCH ×2 (11:40→16:42)
[2017-06-19] MEDS: hydrALAZINE HCL 50 MG TABLET PO SCH ×2 (13:00→21:00)
[2017-06-19 16:00] VITALS: BP 108/83
[2017-06-19] MEDS: ALBUMIN 25% 25 GM in PREMIX 1 EA IV SCH ×2 (16:42→22:39)
[2017-06-19] MEDS: TAMSULOSIN 0.4 MG CAP.SR.24H PO SCH (17:27)
[2017-06-19 20:00] VITALS: BP 100/72
[2017-06-19] MEDS: ZOLPIDEM TARTRATE 5 MG TABLET PO PRN (23:40)
[2017-06-20] MEDS: hydrALAZINE HCL 50 MG TABLET PO SCH ×3 (05:00→21:00)
[2017-06-20] MEDS: ALBUMIN 25% 25 GM in PREMIX 1 EA IV SCH (06:11)
[2017-06-20 06:44] LABS: BASOPHILS % (AUTO) 1.4 % (0.0-2.0); EOSINOPHILS # (AUTO) 0.2 /CMM (0.0-0.7); EOSINOPHILS % (AUTO) 4.3 % (0.0-6.0); HEMATOCRIT 27 % (39-51); HEMOGLOBIN 8.6 g/dL (13.5-17.5); LYMPHOCYTES # (AUTO) 0.4 /CMM (0.8-4.8); LYMPHOCYTES % (AUTO) 10.4 % (20.0-44.0); MEAN CORPUSCULAR HEMOGLOBIN 30 PG (26.0-33.0); MEAN CORPUSCULAR HGB CONC 32 g/dl (31.0-36.0); MEAN CORPUSCULAR VOLUME 94 fL (80-96); MONOCYTES # (AUTO) 0.5 /CMM (0.1-1.30); MONOCYTES % (AUTO) 12.6 % (2.0-12.0); NEUTROPHILS # (AUTO) 2.6 /CMM (1.8-8.9); NEUTROPHILS % (AUTO) 71.3 % (43.0-81.0); PLATELET COUNT (AUTO) 137 /CMM (150-450); RDW COEFFICIENT OF VARIATION 18.9 (11.5-15.0); RED BLOOD CELL COUNT(AUTO) 2.85 MIL/uL (4.5-6.0); WHITE BLOOD COUNT (AUTO) 3.6 K/uL (4.3-11.0)
[2017-06-20 07:02] LABS: ALBUMIN 3.3 g/dL (3.4-5.0); BILIRUBIN,TOTAL 1.5 mg/dL (0.2-1.0); CALCIUM, SERUM 8.1 mg/dL (8.5-10.1); CREATININE 3.7 mg/dL (0.6-1.3); MAGNESIUM 1.8 mg/dL (1.8-2.4); PHOSPHORUS 3.7 mg/dL (2.5-4.9); POTASSIUM 4.1 mmol/L (3.5-5.1); TOTAL PROTEIN, SERUM 5.9 g/dL (6.4-8.2)
[2017-06-20 08:00] VITALS: BP 105/73
[2017-06-20 08:22] LABS: IRON, SERUM 20 ug/dl (50-175); TOTAL IRON BINDING CAPACITY 287 ug/dl (250-450)
[2017-06-20] MEDS: FERROUS SULFATE (325 MG) 325 MG/TAB TABLET PO SCH (08:47)
[2017-06-20] MEDS: FAMOTIDINE (20 MG) 20 MG TABLET PO SCH ×2 (08:47→21:06)
[2017-06-20] MEDS: SERTRALINE HCL 25 MG TABLET PO SCH (08:47)
[2017-06-20] MEDS: ALLOPURINOL 100 MG TABLET PO SCH (08:48)
[2017-06-20] MEDS: MEGESTROL ACETATE SUSP 400 MG/10 ML UDC PO SCH ×2 (08:48→17:24)
[2017-06-20] MEDS: ASPIRIN 81 MG TAB.CHEW PO SCH (08:48)
[2017-06-20] MEDS: AMIODARONE HCL 200 MG TABLET PO SCH ×2 (08:49→17:00)
[2017-06-20] MEDS: CARVEDILOL 12.5 MG TABLET PO SCH ×2 (08:49→21:00)
[2017-06-20] MEDS: ISOSORBIDE MONONITRATE (30MG) 30 MG TAB.SR.24H PO SCH (08:50)
[2017-06-20] MEDS: AMLODIPINE BESYLATE 5 MG TABLET PO SCH (08:50)
[2017-06-20] MEDS: FUROSEMIDE 20 MG TABLET PO SCH (08:51)
[2017-06-20] MEDS: METOLAZONE 2.5 MG TABLET PO SCH (08:55)
[2017-06-20 11:11] LABS: FERRITIN 59 ng/mL (8-388)
[2017-06-20 16:00] VITALS: BP 118/95
[2017-06-20] MEDS: TAMSULOSIN 0.4 MG CAP.SR.24H PO SCH (17:25)
[2017-06-20 20:00] VITALS: BP 120/91
[2017-06-20 20:12] VITALS: BP 120/91
[2017-06-20] MEDS: ZOLPIDEM TARTRATE 5 MG TABLET PO PRN (21:06)
[2017-06-21] MEDS: hydrALAZINE HCL 50 MG TABLET PO SCH ×3 (04:24→21:06)
[2017-06-21 08:00] VITALS: BP 101/73
[2017-06-21] MEDS: AMLODIPINE BESYLATE 5 MG TABLET PO SCH (09:00)
[2017-06-21] MEDS: METOLAZONE 2.5 MG TABLET PO SCH (09:00)
[2017-06-21] MEDS: CARVEDILOL 12.5 MG TABLET PO SCH ×2 (09:00→21:07)
[2017-06-21] MEDS: ISOSORBIDE MONONITRATE (30MG) 30 MG TAB.SR.24H PO SCH (09:00)
[2017-06-21] MEDS: FUROSEMIDE 20 MG TABLET PO SCH (09:00)
[2017-06-21] MEDS: AMIODARONE HCL 200 MG TABLET PO SCH ×2 (09:00→17:27)
[2017-06-21] MEDS: MEGESTROL ACETATE SUSP 400 MG/10 ML UDC PO SCH ×2 (09:20→17:26)
[2017-06-21] MEDS: SERTRALINE HCL 25 MG TABLET PO SCH (09:20)
[2017-06-21] MEDS: ASPIRIN 81 MG TAB.CHEW PO SCH (09:21)
[2017-06-21] MEDS: ALLOPURINOL 100 MG TABLET PO SCH (09:21)
[2017-06-21] MEDS: FAMOTIDINE (20 MG) 20 MG TABLET PO SCH ×2 (09:21→21:08)
[2017-06-21] MEDS: FERROUS SULFATE (325 MG) 325 MG/TAB TABLET PO SCH (09:21)
[2017-06-21 11:28] LABS: BASOPHILS # (AUTO) 0.1 /CMM (0.0-0.2); BASOPHILS % (AUTO) 1.1 % (0.0-2.0); EOSINOPHILS # (AUTO) 0.2 /CMM (0.0-0.7); EOSINOPHILS % (AUTO) 3.4 % (0.0-6.0); HEMATOCRIT 28 % (39-51); LYMPHOCYTES # (AUTO) 0.4 /CMM (0.8-4.8); LYMPHOCYTES % (AUTO) 8.6 % (20.0-44.0); MEAN CORPUSCULAR HEMOGLOBIN 30 PG (26.0-33.0); MEAN CORPUSCULAR HGB CONC 32 g/dl (31.0-36.0); MEAN CORPUSCULAR VOLUME 93 fL (80-96); MONOCYTES # (AUTO) 0.6 /CMM (0.1-1.30); MONOCYTES % (AUTO) 12.5 % (2.0-12.0); NEUTROPHILS # (AUTO) 3.7 /CMM (1.8-8.9); NEUTROPHILS % (AUTO) 74.4 % (43.0-81.0); PLATELET COUNT (AUTO) 138 /CMM (150-450); RDW COEFFICIENT OF VARIATION 18.7 (11.5-15.0); RED BLOOD CELL COUNT(AUTO) 3.02 MIL/uL (4.5-6.0)
[2017-06-21 11:45] LABS: ALBUMIN 3.5 g/dL (3.4-5.0); BILIRUBIN,TOTAL 1.9 mg/dL (0.2-1.0); CALCIUM, SERUM 8.2 mg/dL (8.5-10.1); CREATININE 3.6 mg/dL (0.6-1.3); MAGNESIUM 1.8 mg/dL (1.8-2.4); PHOSPHORUS 3.4 mg/dL (2.5-4.9); POTASSIUM 3.4 mmol/L (3.5-5.1)
[2017-06-21 16:21] VITALS: BP 124/90
[2017-06-21] MEDS: TAMSULOSIN 0.4 MG CAP.SR.24H PO SCH (17:27)
[2017-06-21 20:00] VITALS: BP 114/84
[2017-06-22 06:58] LABS: EOSINOPHILS # (AUTO) 0.1 /CMM (0.0-0.7); EOSINOPHILS % (AUTO) 3.5 % (0.0-6.0); HEMATOCRIT 27 % (39-51); HEMOGLOBIN 8.6 g/dL (13.5-17.5); LYMPHOCYTES # (AUTO) 0.6 /CMM (0.8-4.8); MEAN CORPUSCULAR HEMOGLOBIN 30 PG (26.0-33.0); MEAN CORPUSCULAR HGB CONC 33 g/dl (31.0-36.0); MEAN CORPUSCULAR VOLUME 94 fL (80-96); MONOCYTES # (AUTO) 0.5 /CMM (0.1-1.30); MONOCYTES % (AUTO) 12.9 % (2.0-12.0); NEUTROPHILS # (AUTO) 2.8 /CMM (1.8-8.9); NEUTROPHILS % (AUTO) 68.6 % (43.0-81.0); PLATELET COUNT (AUTO) 132 /CMM (150-450); RDW COEFFICIENT OF VARIATION 18.3 (11.5-15.0); RED BLOOD CELL COUNT(AUTO) 2.84 MIL/uL (4.5-6.0); WHITE BLOOD COUNT (AUTO) 4.1 K/uL (4.3-11.0)
[2017-06-22 07:06] LABS: ALBUMIN 3.2 g/dL (3.4-5.0); BILIRUBIN,TOTAL 1.7 mg/dL (0.2-1.0); CREATININE 3.2 mg/dL (0.6-1.3); MAGNESIUM 1.8 mg/dL (1.8-2.4); PHOSPHORUS 3.1 mg/dL (2.5-4.9); POTASSIUM 3.2 mmol/L (3.5-5.1); TOTAL PROTEIN, SERUM 5.7 g/dL (6.4-8.2)
[2017-06-22 08:00] VITALS: BP 108/73
[2017-06-22] MEDS: AMIODARONE HCL 200 MG TABLET PO SCH ×3 (09:00→17:00)
[2017-06-22] MEDS: METOLAZONE 2.5 MG TABLET PO SCH ×2 (09:00→09:43)
[2017-06-22] MEDS: AMLODIPINE BESYLATE 5 MG TABLET PO SCH ×2 (09:00→09:46)
[2017-06-22] MEDS: CARVEDILOL 12.5 MG TABLET PO SCH ×3 (09:00→21:28)
[2017-06-22] MEDS: FAMOTIDINE (20 MG) 20 MG TABLET PO SCH ×2 (09:40→20:12)
[2017-06-22] MEDS: MEGESTROL ACETATE SUSP 400 MG/10 ML UDC PO SCH ×2 (09:40→17:07)
[2017-06-22] MEDS: SERTRALINE HCL 25 MG TABLET PO SCH (09:42)
[2017-06-22] MEDS: FUROSEMIDE 20 MG TABLET PO SCH (09:42)
[2017-06-22] MEDS: ASPIRIN 81 MG TAB.CHEW PO SCH (09:42)
[2017-06-22] MEDS: ISOSORBIDE MONONITRATE (30MG) 30 MG TAB.SR.24H PO SCH (09:45)
[2017-06-22] MEDS: ALLOPURINOL 100 MG TABLET PO SCH (09:46)
[2017-06-22] MEDS: FERROUS SULFATE (325 MG) 325 MG/TAB TABLET PO SCH (09:46)
[2017-06-22] MEDS: SPIRONOLACTONE 25 MG TABLET PO SCH (12:30)
[2017-06-22] MEDS ORDERED: POTASSIUM CHLORIDE 20 MEQ TAB.PRT.SR PO ONE (12:30)
[2017-06-22] MEDS: hydrALAZINE HCL 50 MG TABLET PO SCH ×2 (13:00→21:00)
[2017-06-22 16:18] VITALS: BP 96/62
[2017-06-22] MEDS: TAMSULOSIN 0.4 MG CAP.SR.24H PO SCH (17:07)
[2017-06-22 19:35] VITALS: BP 107/76
[2017-06-22 20:00] VITALS: BP 107/76
[2017-06-22] MEDS: ZOLPIDEM TARTRATE 5 MG TABLET PO PRN (20:13)
[2017-06-23] MEDS: hydrALAZINE HCL 50 MG TABLET PO SCH ×2 (05:11→13:00)
[2017-06-23 07:52] LABS: EOSINOPHILS # (AUTO) 0.2 /CMM (0.0-0.7); EOSINOPHILS % (AUTO) 3.7 % (0.0-6.0); HEMATOCRIT 27 % (39-51); HEMOGLOBIN 8.5 g/dL (13.5-17.5); LYMPHOCYTES # (AUTO) 0.4 /CMM (0.8-4.8); LYMPHOCYTES % (AUTO) 9.9 % (20.0-44.0); MEAN CORPUSCULAR HEMOGLOBIN 30 PG (26.0-33.0); MEAN CORPUSCULAR HGB CONC 32 g/dl (31.0-36.0); MEAN CORPUSCULAR VOLUME 93 fL (80-96); MONOCYTES # (AUTO) 0.6 /CMM (0.1-1.30); MONOCYTES % (AUTO) 13.9 % (2.0-12.0); NEUTROPHILS # (AUTO) 3.2 /CMM (1.8-8.9); NEUTROPHILS % (AUTO) 71.5 % (43.0-81.0); PLATELET COUNT (AUTO) 148 /CMM (150-450); RDW COEFFICIENT OF VARIATION 18.6 (11.5-15.0); RED BLOOD CELL COUNT(AUTO) 2.86 MIL/uL (4.5-6.0); WHITE BLOOD COUNT (AUTO) 4.5 K/uL (4.3-11.0)
[2017-06-23 08:07] LABS: CALCIUM, SERUM 7.9 mg/dL (8.5-10.1); CREATININE 3.1 mg/dL (0.6-1.3); MAGNESIUM 1.7 mg/dL (1.8-2.4); PHOSPHORUS 3.1 mg/dL (2.5-4.9)
[2017-06-23] MEDS: MEGESTROL ACETATE SUSP 400 MG/10 ML UDC PO SCH (08:23)
[2017-06-23] MEDS: ALLOPURINOL 100 MG TABLET PO SCH (08:23)
[2017-06-23] MEDS: FAMOTIDINE (20 MG) 20 MG TABLET PO SCH (08:23)
[2017-06-23] MEDS: FERROUS SULFATE (325 MG) 325 MG/TAB TABLET PO SCH (08:23)
[2017-06-23] MEDS: ASPIRIN 81 MG TAB.CHEW PO SCH (08:23)
[2017-06-23] MEDS: SERTRALINE HCL 25 MG TABLET PO SCH (08:23)
[2017-06-23 08:41] VITALS: BP 110/75
[2017-06-23 08:46] VITALS: BP 110/75
[2017-06-23] MEDS: AMLODIPINE BESYLATE 5 MG TABLET PO SCH (09:00)
[2017-06-23] MEDS ORDERED: METOLAZONE 2.5 MG TABLET PO SCH (09:00)
[2017-06-23] MEDS: AMIODARONE HCL 200 MG TABLET PO SCH (09:00)
[2017-06-23] MEDS: FUROSEMIDE 20 MG TABLET PO SCH (09:00)
[2017-06-23] MEDS: ISOSORBIDE MONONITRATE (30MG) 30 MG TAB.SR.24H PO SCH (09:00)
[2017-06-23] MEDS: CARVEDILOL 12.5 MG TABLET PO SCH (09:00)
[2017-06-23] MEDS: SPIRONOLACTONE 25 MG TABLET PO SCH (09:07)
[2017-06-23] MEDS ORDERED: POTASSIUM CHLORIDE 20 MEQ TAB.PRT.SR PO ONE (12:30)
[2017-06-23 13:00] VITALS: BP 91/57
== END 2017-06-23 15:10 | DRG 947 ==
LOC: ER 21:08 → MED 23:53
PROVIDERS: ADMIT Internal Medicine; ATTEND Internal Medicine
PROC: 0W9G3ZZ Drainage of Peritoneal Cavity, Percutaneous Approach (ICD-10-PCS; principal; 2017-06-19)
DX: R18.8 Other ascites (principal); K76.7 Hepatorenal syndrome; D68.9 Coagulation defect, unspecified; N18.4 Chronic kidney disease, stage 4 (severe); N17.9 Acute kidney failure, unspecified; K76.81 Hepatopulmonary syndrome; K76.1 Chronic passive congestion of liver; D64.9 Anemia, unspecified; I12.9 Hypertensive chronic kidney disease with stage 1 through stage 4 chronic kidney disease, or unspecified chronic kidney disease; Z79.01 Long term (current) use of anticoagulants; N40.0 Benign prostatic hyperplasia without lower urinary tract symptoms; E78.5 Hyperlipidemia, unspecified; Z95.2 Presence of prosthetic heart valve; Z95.0 Presence of cardiac pacemaker; Z79.899 Other long term (current) drug therapy; Z79.82 Long term (current) use of aspirin; M10.9 Gout, unspecified; K21.9 Gastro-esophageal reflux disease without esophagitis; I25.5 Ischemic cardiomyopathy; D63.8 Anemia in other chronic diseases classified elsewhere
CPT/HCPCS: 36415; 71010-TC; 76942-TC; 80048-TC; 80053-TC; 80074; 80076-TC; 82040-TC; 82105; 82272-TC; 82550-TC; 82728-TC; 83540-TC; 83690-TC; 83735-TC; 83970; 84100-TC; 85025-TC; 85730-TC; 87081-TC; 94799-TC; A4216; A4606; J2405; J7030; P9047; Z7610

== ENCOUNTER 2017-08-08 20:57 | Emergency (ER) | payer MEDICARE, OTHER, MEDICAID ==
[~2017-08-08] VITALS: Ht 182.9 cm; Wt 93.0 kg
[~2017-08-08 20:57] MED LIST changes: +ACET-868 PO; -APIX2.5T PO; +ASPI81TA2 PO; +BISA10SU8 RC; -FAMO20TA8 PO; +FERR325T28 PO; +FURO-145 PO; -HYDR-3326 PO; -IPRA3AMP IH; +MAGN400O6 PO; +MEGE400O PO; +METO5TAB7 PO; +NA P133E RC; +ONDA4TAB5 PO; -POTA20TA83 PO; +SERT25TA PO
--- NOTE | 2017-08-08 21:20 | NUR ---
PT BIBA FROM [facility], PT SENT BY PMD FOR LOW H&H, WBC, RBC, AND K. PT AOX3 RR EVEN AND UNLABORED. NO SOB NOTED. NAD NOTED. NO NVD AT THIS TIME. PT GOWNED AND PLACED ON MONITOR WAITING FOR MD MONSALVE.
--- NOTE | 2017-08-08 21:24 | NUR ---
DR. MASSEY AT BEDSIDE FOR EVAL.
--- NOTE | 2017-08-08 21:48 | NUR ---
RADIOLOGY AT BEDSIDE FOR CXR
[2017-08-08 22:02] LABS: BASOPHILS % (AUTO) 0.7 % (0.0-2.0); EOSINOPHILS # (AUTO) 0.4 /CMM (0.0-0.7); EOSINOPHILS % (AUTO) 9.4 % (0.0-6.0); HEMATOCRIT 31 % (39-51); HEMOGLOBIN 9.8 g/dL (13.5-17.5); LYMPHOCYTES # (AUTO) 0.5 /CMM (0.8-4.8); LYMPHOCYTES % (AUTO) 10.3 % (20.0-44.0); MEAN CORPUSCULAR HEMOGLOBIN 30 PG (26.0-33.0); MEAN CORPUSCULAR HGB CONC 32 g/dl (31.0-36.0); MEAN CORPUSCULAR VOLUME 94 fL (80-96); MONOCYTES # (AUTO) 0.5 /CMM (0.1-1.30); MONOCYTES % (AUTO) 10.5 % (2.0-12.0); NEUTROPHILS # (AUTO) 3.2 /CMM (1.8-8.9); NEUTROPHILS % (AUTO) 69.1 % (43.0-81.0); PLATELET COUNT (AUTO) 151 /CMM (150-450); RDW COEFFICIENT OF VARIATION 16.5 (11.5-15.0); RED BLOOD CELL COUNT(AUTO) 3.25 MIL/uL (4.5-6.0); WHITE BLOOD COUNT (AUTO) 4.6 K/uL (4.3-11.0)
[2017-08-08 22:09] LABS: INR 1.1 (0.87-1.13); PROTHROMBIN TIME 11.4 SECS (9.5-12.7)
[2017-08-08 22:11] LABS: CALCIUM, SERUM 8.8 mg/dL (8.5-10.1); CREATININE 3.5 mg/dL (0.6-1.3); POTASSIUM 3.6 mmol/L (3.5-5.1)
[2017-08-08 22:12] LABS: ALBUMIN 3.8 g/dL (3.4-5.0); BILIRUBIN,DIRECT 0.6 mg/dL (0.0-0.2); BILIRUBIN,TOTAL 2.5 mg/dL (0.2-1.0); TOTAL PROTEIN, SERUM 7.2 g/dL (6.4-8.2)
--- NOTE | 2017-08-08 22:25 | NUR ---
DR. SIMPSON AT BEDSIDE SPEAKING TO PT REGARDING RESULTS
--- NOTE | 2017-08-08 22:34 | NUR ---
PER DR. SIMPSON TO HOLD COLLECTING UA.
--- NOTE | 2017-08-08 22:55 | NUR ---
CALLED [facility] FOR TRANSPORTATION GOING BACK TO [address] [place] [address], ETA 30 MIN.
--- NOTE | 2017-08-08 23:52 | NUR ---
SPOKE TO PEDRO LUIS MULLIGAN, STATES TRANSPORT SHOULD BE ON SITE.
--- NOTE | 2017-08-09 00:07 | NUR ---
REPORT GIVEN TO CHA FOR JUNE. PT WITH ALL PERSONAL BELONGINGS. AWARE OF TRANSPORT. VSS. PT TRANSFERED TO [facility] FOR [facility]. IV removed. Catheter intact and site benign. Pressure and 4x4 applied to site. No bleeding noted.
[2017-08-09 00:10] VITALS: BP 118/90
== END 2017-08-09 00:11 | disposition home or self-care (01) ==
LOC: ER 20:58
DX: R79.9 Abnormal finding of blood chemistry, unspecified (principal); D64.9 Anemia, unspecified; I12.0 Hypertensive chronic kidney disease with stage 5 chronic kidney disease or end stage renal disease; K21.9 Gastro-esophageal reflux disease without esophagitis; K72.90 Hepatic failure, unspecified without coma; K74.60 Unspecified cirrhosis of liver; M10.9 Gout, unspecified; N18.6 End stage renal disease; N40.0 Benign prostatic hyperplasia without lower urinary tract symptoms; Z79.82 Long term (current) use of aspirin; Z95.0 Presence of cardiac pacemaker
CPT/HCPCS: 36415; 71010-TC; 80048-TC; 80076-TC; 85025-TC; 85730-TC; 87040-TC; A4606; Z7610

== ENCOUNTER 2017-08-27 19:51 | Inpatient (IN) | payer OTHER, MEDICARE, MEDICAID ==
[~2017-08-27] VITALS: Ht 182.9 cm; Wt 84.4 kg
--- NOTE | 2017-08-27 19:58 | NUR ---
PT BOOKER FROM SNF TO ER BED 10. SENT BY PMD FOR ADDOMINAL DISTENSION. PT STATES LAST HAD PARACENTHESIS A MONTH AGO. PT ALSO C/O BLOOD IN THE STOOL X 2 WEEKS. PT IS AAOX3. DENIES PAIN. GOWNED AND PLACED ON MONITOR. NAD NOTED. AWAITING MD MONSALVE.
--- NOTE | 2017-08-27 20:21 | NUR ---
IV LINE STARTED BLOOD DRAWN AND SENT TO LAB.
--- NOTE | 2017-08-27 20:33 | NUR ---
DR WSANN AT BEDSIDE FOR EVAL.
[2017-08-27 20:35] LABS: BASOPHILS # (AUTO) 0.1 /CMM (0.0-0.2); BASOPHILS % (AUTO) 1.4 % (0.0-2.0); EOSINOPHILS # (AUTO) 0.4 /CMM (0.0-0.7); EOSINOPHILS % (AUTO) 8.9 % (0.0-6.0); HEMATOCRIT 27 % (39-51); HEMOGLOBIN 9.1 g/dL (13.5-17.5); LYMPHOCYTES # (AUTO) 0.4 /CMM (0.8-4.8); LYMPHOCYTES % (AUTO) 10.4 % (20.0-44.0); MEAN CORPUSCULAR HEMOGLOBIN 31 PG (26.0-33.0); MEAN CORPUSCULAR HGB CONC 33 g/dl (31.0-36.0); MEAN CORPUSCULAR VOLUME 93 fL (80-96); MONOCYTES # (AUTO) 0.4 /CMM (0.1-1.30); MONOCYTES % (AUTO) 9.6 % (2.0-12.0); NEUTROPHILS # (AUTO) 2.8 /CMM (1.8-8.9); NEUTROPHILS % (AUTO) 69.7 % (43.0-81.0); PLATELET COUNT (AUTO) 166 /CMM (150-450); RDW COEFFICIENT OF VARIATION 15.6 (11.5-15.0); RED BLOOD CELL COUNT(AUTO) 2.94 MIL/uL (4.5-6.0); WHITE BLOOD COUNT (AUTO) 4.1 K/uL (4.3-11.0)
[2017-08-27 20:38] LABS: CALCIUM, SERUM 8.5 mg/dL (8.5-10.1); CREATININE 3.3 mg/dL (0.6-1.3); POTASSIUM 4.2 mmol/L (3.5-5.1)
[2017-08-27 20:40] LABS: INR 1.13 (0.87-1.13); PROTHROMBIN TIME 11.7 SECS (9.5-12.7)
[2017-08-27 20:44] LABS: ALBUMIN 3.5 g/dL (3.4-5.0); BILIRUBIN,TOTAL 3.5 mg/dL (0.2-1.0); TOTAL PROTEIN, SERUM 6.8 g/dL (6.4-8.2)
[2017-08-27 20:53] LABS: BILIRUBIN,DIRECT 0.7 mg/dL (0.0-0.2)
[2017-08-27] MEDS ORDERED: PANTOPRAZOLE 80 MG in IV NS 0.9% 500 ML IV ONE ×5 (21:00→21:30)
[2017-08-27] MEDS ORDERED: PANTOPRAZOLE 40 MG VIAL ONE (21:14)
[2017-08-27] MEDS ORDERED: OCTREOTIDE 100 MCG/ML VIAL ONE ×4 (21:14→21:47)
[2017-08-27] MEDS ORDERED: OCTREOTIDE 50 MCG/ML AMPUL IV ONE (21:30)
[2017-08-27] MEDS ORDERED: OCTREOTIDE 1,250 MCG in IV NS 0.9% 250 ML IV ONE (21:30)
[2017-08-27] MEDS ORDERED: OCTREOTIDE 500 MCG/ML VIAL ONE (21:45)
--- NOTE | 2017-08-27 22:04 | NUR ---
REPORT CALLED. PT TRANSPORTED TO FLOOR IN STABLE CONDITION.
--- NOTE | 2017-08-27 22:08 | NUR ---
OCTREOTIDE GIVEN. DOUBLE ORDER.
--- NOTE | 2017-08-27 22:10 | NUR ---
SET OFF PRESS OPERATOR NOTE RECEIVED PATIENT FROM ER VIA [facility], PATIENT IS ALERT AND ORIENTEDX3, DENIES RESPIRATORY DISTRESS OR PAIN UPON ADMISSION. ABDOMEN IS DISTENDED, SOFT TO TOUCH, NO DISCOMFORT REPORTED. IV ON LEFT FA 20G AND RIGHT AC 20G ARE PATENT AND INTACT, WILL F/U IV MEDS FROM ER. TELE MONITOR V PACING 76. WILL CONTACT DR. CINTRON FOR AN ADMISSION ORDER. SRX2, BED IN LOW POSITION, CALL LIGHT WITHIN REACH, WILL CONTINUE TO MONITOR PATIENT.
--- NOTE | 2017-08-27 22:15 | NUR ---
PROGRAM DIRECTOR GROUP WORK NOTE GOT AN ADMISSION ORDER FROM DR. CINTRON, WANTS TO CONTINUE ALL OF PT'S CARE HOME MEDS. PATIENT ALSO REQUESTED TO TAKE SLEEPING MED TONIGHT, SPOKE WITH MD, GOT AN ORDER OF AMBIEN 10MG PO HS, AND OKAY TO GIVE TONIGHT. WILL INPUT THE ADMISSION ORDER AND CARRY OUT.
[2017-08-27 22:30] VITALS: BP 107/74
[2017-08-27] MEDS ORDERED: ZOLPIDEM TARTRATE 10 MG TABLET ONE (23:01)
[2017-08-27] MEDS: ZOLPIDEM TARTRATE 10 MG TABLET PO PRN (23:09)
[2017-08-28] VITALS (7 sets, daily range): BP systolic 107–125; BP diastolic 72–98
--- NOTE | 2017-08-28 08:10 | NUR ---
MS RN RECEIVED ON BED, AWAKE,ALERT,ORIENTED X4,NOT IN ANY FORM OF DISTRESS, RESPIRATIONS EVEN AND UNLABORED,NO SOB NOTED, LUNGS ARE CLEAR,ABDOMEN SOFT,POSITIVE BOWEL SOUNDS, DENIES PAIN AT THIS TIME, WILL MONITOR PATIENT'S CONDITION,ALL NEEDS ATTENDED.
--- NOTE | 2017-08-28 08:58 | NUR ---
MS RN NPO AT THIS TIME, ALL NEEDS ATTENDED.
[2017-08-28] MEDS ORDERED: BISACODYL SUPP (10 MG) 10 MG/SUPP.RECT SUPP.RECT RC PRN (09:30)
[2017-08-28] MEDS ORDERED: MAGNESIUM HYDROXIDE 30 ML UDC PO PRN (09:30)
[2017-08-28] MEDS ORDERED: NA PHOS,M-B/NA PHOS,DI-BA 1 EA ENEMA RC PRN (09:30)
[2017-08-28] MEDS ORDERED: ACETAMINOPHEN 325 MG TABLET PO PRN (09:30)
[2017-08-28] MEDS ORDERED: FERROUS SULFATE (325 MG) 325 MG/TAB TABLET PO ONE (10:30)
[2017-08-28] MEDS ORDERED: ASPIRIN 81 MG TAB.CHEW PO ONE (10:30)
[2017-08-28] MEDS ORDERED: FUROSEMIDE 20 MG TABLET PO ONE (10:30)
[2017-08-28] MEDS ORDERED: hydrALAZINE HCL 50 MG TABLET PO ONE (10:30)
[2017-08-28] MEDS ORDERED: AMIODARONE HCL 200 MG TABLET PO ONE (10:30)
[2017-08-28] MEDS ORDERED: SERTRALINE HCL 25 MG TABLET PO ONE (10:30)
[2017-08-28] MEDS ORDERED: AMLODIPINE BESYLATE 5 MG TABLET PO ONE (10:30)
[2017-08-28] MEDS ORDERED: METOLAZONE 5 MG TABLET PO SCH (11:00)
[2017-08-28] MEDS ORDERED: CARVEDILOL 25 MG TABLET PO SCH (11:00)
[2017-08-28] MEDS ORDERED: ONDANSETRON 4 MG TAB.RAPDIS PO PRN (11:00)
[2017-08-28] MEDS ORDERED: ISOSORBIDE MONONITRATE 60 MG TAB.SR.24H PO SCH (11:00)
[2017-08-28 12:29] LABS: BASOPHILS # (AUTO) 0.1 /CMM (0.0-0.2); BASOPHILS % (AUTO) 1.7 % (0.0-2.0); EOSINOPHILS # (AUTO) 0.4 /CMM (0.0-0.7); EOSINOPHILS % (AUTO) 9.1 % (0.0-6.0); HEMATOCRIT 27 % (39-51); HEMOGLOBIN 8.7 g/dL (13.5-17.5); LYMPHOCYTES # (AUTO) 0.4 /CMM (0.8-4.8); LYMPHOCYTES % (AUTO) 9.5 % (20.0-44.0); MEAN CORPUSCULAR HEMOGLOBIN 30 PG (26.0-33.0); MEAN CORPUSCULAR HGB CONC 32 g/dl (31.0-36.0); MEAN CORPUSCULAR VOLUME 94 fL (80-96); MONOCYTES # (AUTO) 0.5 /CMM (0.1-1.30); MONOCYTES % (AUTO) 11.9 % (2.0-12.0); NEUTROPHILS # (AUTO) 2.7 /CMM (1.8-8.9); NEUTROPHILS % (AUTO) 67.8 % (43.0-81.0); RDW COEFFICIENT OF VARIATION 17.1 (11.5-15.0); RED BLOOD CELL COUNT(AUTO) 2.89 MIL/uL (4.5-6.0)
[2017-08-28 12:31] LABS: PLATELET COUNT (AUTO) 123 /CMM (150-450)
[2017-08-28] MEDS: hydrALAZINE HCL 50 MG TABLET PO SCH ×2 (13:00→21:00)
[2017-08-28] MEDS: AMIODARONE HCL 200 MG TABLET PO SCH (17:00)
[2017-08-28] MEDS: TAMSULOSIN 0.4 MG CAP.SR.24H PO SCH (17:15)
--- NOTE | 2017-08-28 17:50 | NUR ---
MS RN WAS SEEN BY DR. GUO, WAS ABLE TO SPOKE W/ , PATIENT GO FOR EGD NOW.
--- NOTE | 2017-08-28 18:23 | NUR ---
MS RN WENT DOWN FOR EGD.
--- NOTE | 2017-08-28 18:47 | NUR ---
MS RN PATIENT CAME BACK FROM PROCEDURE,TO RESUME ALL PRE OP ORDERS PER ORDER.
--- NOTE | 2017-08-28 18:59 | NUR ---
MS RN CALLED KITCHEN FOR DIET, NI DISTRESS NOTED,ALL NEEDS ATTENDED.
[2017-08-28 19:29] LABS: CALCIUM, SERUM 8.3 mg/dL (8.5-10.1); POTASSIUM 3.9 mmol/L (3.5-5.1)
[2017-08-28 19:30] LABS: CREATININE 3.3 mg/dL (0.6-1.3)
--- NOTE | 2017-08-28 19:45 | NUR ---
CEO & CO FOUNDER NOTE RECEIVED PATIENT FROM DAY SHIFT, PATIENT IS ALERT AND ORIENTEDX3, DENIES RESPIRATORY DISTRESS OR PAIN AT THIS TIME. IV SITES ARE PATENT AND INTACT, FLUID IS RUNNING. TELE MONITOR V PACING 75. SRX2, BED IN LOW POSITION, CALL LIGHT WITHIN REACH, WILL CONTINUE TO MONITOR PATIENT.
[2017-08-28] MEDS: IV D5/ 0.9% NACL 1,000 ML IV PRN (19:48)
--- NOTE | 2017-08-28 21:00 | NUR ---
DIRECTIONAL DRILL OPERATOR NOTE PATIENT'S BP WAS 125/98 PULSE 77. PT DID NOT WANT TO TAKE HYDRALAZINE 50MG PO AT THIS TIME, ONLY COREG 50MG PO GIVEN. WILL CHECK HIS BP AGAIN AND WILL ADMINISTER 0500 HYDRALAZINE.
[2017-08-28] MEDS: CARVEDILOL 12.5 MG TABLET PO SCH (21:06)
[2017-08-28] MEDS: ZOLPIDEM TARTRATE 10 MG TABLET PO PRN (21:13)
[2017-08-29] VITALS: BP 108/80
[2017-08-29 04:00] VITALS: BP 98/69
[2017-08-29] MEDS: hydrALAZINE HCL 50 MG TABLET PO SCH ×3 (04:53→21:02)
--- NOTE | 2017-08-29 06:49 | NUR ---
SENIOR CLINICAL DATA COORDINATOR NOTE PATIENT IS SLEEPING IN BED COMFORTABLY, NO S/S OF RESPIRATORY DISTRESS OR PAIN AT THIS TIME. TWO IV SITES ARE PATENT AND INTACT, FLUID IS RUNNING. TELE MONITOR VPACING 75. WILL ENDORSE TO DAY SHIFT FOR JUNE.
[2017-08-29 07:09] LABS: EOSINOPHILS # (AUTO) 0.4 /CMM (0.0-0.7); EOSINOPHILS % (AUTO) 9.1 % (0.0-6.0); HEMATOCRIT 28 % (39-51); HEMOGLOBIN 8.9 g/dL (13.5-17.5); LYMPHOCYTES # (AUTO) 0.4 /CMM (0.8-4.8); LYMPHOCYTES % (AUTO) 9.4 % (20.0-44.0); MEAN CORPUSCULAR HEMOGLOBIN 30 PG (26.0-33.0); MEAN CORPUSCULAR HGB CONC 32 g/dl (31.0-36.0); MEAN CORPUSCULAR VOLUME 94 fL (80-96); MONOCYTES # (AUTO) 0.5 /CMM (0.1-1.30); MONOCYTES % (AUTO) 12.9 % (2.0-12.0); NEUTROPHILS # (AUTO) 2.9 /CMM (1.8-8.9); NEUTROPHILS % (AUTO) 68.6 % (43.0-81.0); PLATELET COUNT (AUTO) 129 /CMM (150-450); RED BLOOD CELL COUNT(AUTO) 2.96 MIL/uL (4.5-6.0); WHITE BLOOD COUNT (AUTO) 4.2 K/uL (4.3-11.0)
[2017-08-29 07:30] LABS: IRON, SERUM 39 ug/dl (50-175); TOTAL IRON BINDING CAPACITY 312 ug/dl (250-450)
[2017-08-29 07:33] LABS: CALCIUM, SERUM 7.7 mg/dL (8.5-10.1); CREATININE 3.2 mg/dL (0.6-1.3); MAGNESIUM 1.7 mg/dL (1.8-2.4); PHOSPHORUS 3.8 mg/dL (2.5-4.9); POTASSIUM 3.1 mmol/L (3.5-5.1)
--- NOTE | 2017-08-29 07:33 | NUR ---
TELE/RN OPENING NOTE PATIENT RECEIVED IN BED ASLEEP, EASILY AROUSABLE IN STABLE CONDITION. A/O X 4. NO SIGNS OF ACUTE DISTRESS. NO COMPLAIN OF PAIN OR DISCOMFORT. ON TELE MONITORING WITH WITH V PACING. ALL NEEDS ATTENDED TO. CALL LIGHT WITHIN REACH. WILL CONTINUE TO MONITOR TO ENSURE SAFETY.
[2017-08-29 08:00] VITALS: BP 95/72
[2017-08-29] MEDS: MEGESTROL ACETATE SUSP 400 MG/10 ML UDC PO SCH (08:52)
[2017-08-29] MEDS: ASPIRIN 81 MG TAB.CHEW PO SCH (08:52)
[2017-08-29] MEDS: SERTRALINE HCL 25 MG TABLET PO SCH (08:53)
[2017-08-29] MEDS: ALLOPURINOL 100 MG TABLET PO SCH (08:53)
[2017-08-29] MEDS: PANTOPRAZOLE 40 MG TABLET.DR PO SCH (08:53)
[2017-08-29] MEDS: AMIODARONE HCL 200 MG TABLET PO SCH ×2 (08:54→16:52)
[2017-08-29] MEDS: FUROSEMIDE 20 MG TABLET PO SCH (08:57)
[2017-08-29] MEDS: AMLODIPINE BESYLATE 5 MG TABLET PO SCH (09:00)
[2017-08-29] MEDS: METOLAZONE 2.5 MG TABLET PO SCH (09:00)
[2017-08-29] MEDS: ISOSORBIDE MONONITRATE (30MG) 30 MG TAB.SR.24H PO SCH (09:00)
[2017-08-29] MEDS: CARVEDILOL 12.5 MG TABLET PO SCH ×2 (09:00→21:02)
[2017-08-29] MEDS ORDERED: FERROUS SULFATE (325 MG) 325 MG/TAB TABLET PO SCH (09:00)
[2017-08-29] MEDS: IV D5/ 0.9% NACL 1,000 ML IV PRN ×2 (11:08→22:54)
--- NOTE | 2017-08-29 12:34 | NUR ---
MS/RN SPOKE WITH DR STOUT SPOKE WITH DR STOUT AND MADE AWARE REGARDING PATIENT'S LABS OF K=3.1. MG = 1.7, MADE AWARE PATIENT NOTED WITH ABDOMEN DISTENTION. PER DR STOUT, HE WILL PUT IN ORDERS.
--- NOTE | 2017-08-29 12:57 | NUR ---
MS/RN US PARACENTESIS RECEIVED CALL FROM RADIOLOGY DEPT, ISELA GONZALEZ PATIENT WONT BE ABLE TO HAVE PARACENTESIS OVER THE WEEKEND DUE TO NO US TECH. PATIENT WILL HAVE US PARACENTESIS ON THURSDAY. NOTIFIED.
[2017-08-29] MEDS ORDERED: POTASSIUM CHLORIDE 20 MEQ TAB.PRT.SR PO ONE (13:00)
[2017-08-29] MEDS: SOD FERRIC GLUC 125 MG in IV NS 0.9% 100 ML IV SCH (15:19)
[2017-08-29 16:00] VITALS: BP 98/69
[2017-08-29] MEDS: TAMSULOSIN 0.4 MG CAP.SR.24H PO SCH (17:12)
--- NOTE | 2017-08-29 18:19 | NUR ---
MS/RN CLOSING NOTE PATIENT IN BED IN STABLE CONDITION. A/O X 4. NO SIGNS OF ACUTE DISTRESS. NO COMPLAIN OF PAIN OR DISCOMFORT. ALL NEEDS ATTENDED TO. CALL LIGHT WITHIN REACH. WILL ENDORSE TO NEXT SHIFT FOR CONTINUITY OF CARE.
--- NOTE | 2017-08-29 19:14 | NUR ---
MS RN OPENING NOTES PATIENT RESTING IN BED A/O X 4, NO ACUTE DISTRESS NOTED. BREATHING EVEN AND UNLABORED, NO SOB NOTED. SAFETY MEASURES IN PLACE, BED LOCKED AND IN LOWEST POSITION, CALL LIGHT IN REACH. WILL CONTINUE TO MONITOR.
[2017-08-29 20:00] VITALS: BP 112/70
[2017-08-29] MEDS: ZOLPIDEM TARTRATE 10 MG TABLET PO PRN (21:03)
[2017-08-30] MEDS: hydrALAZINE HCL 50 MG TABLET PO SCH ×3 (05:01→21:00)
--- NOTE | 2017-08-30 06:28 | NUR ---
MS RN CLOSING NOTES PATIENT COMFORTABLY ASLEEP AND EASILY AWAKEN, HEAD OF BED ELEVATED FOR BETTER LUNG EXPANSION ON 02 2LPM VIA NC 02 SAT 97%,. IV SITE INTACT WITH NO S/S OF INFILTRATED PATENT AND FLUSHED, PATIENT DENIES PAIN AT THIS TIME. 0/10 RESPIRATIONS EVEN AND UNLABORED., NO S/S OF ACUTE DISTRESS, NO SOB, NO COUGH, NO CONGESTION, SKIN WARM AND DRY TO TOUCH, AFEBRILE, ALL NURSING CARE RENDERED, NEEDS ATTENDED AND ANTICIPATED, NO S/S OF BLEEDING NOTED, KEPT CLEAN AND DRY AND COMFORTABLE, GOOD SKIN CARE PROVIDED. ALL DUE MEDS WAS GIVEN. FREQUENT VISUAL CHECK DONE FOR SAFETY EVERY 2 HOURS. SAFE HAZARD FREE ENVIRONMENT PROVIDED. CALL LIGHT WITHIN EASY TO REACH, ON LOW BED AT ALL TIMES TO ENSURE SAFETY, WILL ENDORSE TO THE NEXT SHIFT CONTINUE PLAN OF CARE.
[2017-08-30 07:03] LABS: EOSINOPHILS # (AUTO) 0.4 /CMM (0.0-0.7); EOSINOPHILS % (AUTO) 7.2 % (0.0-6.0); HEMATOCRIT 28 % (39-51); HEMOGLOBIN 8.9 g/dL (13.5-17.5); LYMPHOCYTES # (AUTO) 0.5 /CMM (0.8-4.8); LYMPHOCYTES % (AUTO) 9.9 % (20.0-44.0); MEAN CORPUSCULAR HEMOGLOBIN 30 PG (26.0-33.0); MEAN CORPUSCULAR HGB CONC 32 g/dl (31.0-36.0); MEAN CORPUSCULAR VOLUME 95 fL (80-96); MONOCYTES # (AUTO) 0.5 /CMM (0.1-1.30); MONOCYTES % (AUTO) 10.9 % (2.0-12.0); NEUTROPHILS # (AUTO) 3.5 /CMM (1.8-8.9); PLATELET COUNT (AUTO) 132 /CMM (150-450); RED BLOOD CELL COUNT(AUTO) 2.96 MIL/uL (4.5-6.0); WHITE BLOOD COUNT (AUTO) 4.9 K/uL (4.3-11.0)
[2017-08-30 07:20] LABS: CALCIUM, SERUM 7.7 mg/dL (8.5-10.1); CREATININE 3.1 mg/dL (0.6-1.3); MAGNESIUM 1.5 mg/dL (1.8-2.4); PHOSPHORUS 3.4 mg/dL (2.5-4.9); POTASSIUM 2.9 mmol/L (3.5-5.1)
--- NOTE | 2017-08-30 07:33 | NUR ---
MS/RN OPENING NOTE PATIENT RECEIVED IN BED IN STABLE CONDITION. A/O X 4. NO SIGNS OF ACUTE DISTRESS. NO COMPLAIN OF PAIN OR DISCOMFORT. ALL NEEDS ATTENDED TO. CALL LIGHT WITHIN REACH. WILL CONTINUE TO MONITOR TO ENSURE SAFETY.
[2017-08-30] MEDS: MEGESTROL ACETATE SUSP 400 MG/10 ML UDC PO SCH (08:22)
[2017-08-30] MEDS: FUROSEMIDE 20 MG TABLET PO SCH (08:22)
[2017-08-30] MEDS: ALLOPURINOL 100 MG TABLET PO SCH (08:23)
[2017-08-30] MEDS: SERTRALINE HCL 25 MG TABLET PO SCH (08:23)
[2017-08-30] MEDS: PANTOPRAZOLE 40 MG TABLET.DR PO SCH (08:23)
[2017-08-30] MEDS: ASPIRIN 81 MG TAB.CHEW PO SCH (08:23)
[2017-08-30] MEDS: CARVEDILOL 12.5 MG TABLET PO SCH ×2 (08:24→21:00)
[2017-08-30] MEDS: AMLODIPINE BESYLATE 5 MG TABLET PO SCH (08:24)
[2017-08-30] MEDS: ISOSORBIDE MONONITRATE (30MG) 30 MG TAB.SR.24H PO SCH (08:24)
[2017-08-30] MEDS: METOLAZONE 2.5 MG TABLET PO SCH (08:24)
[2017-08-30] MEDS: AMIODARONE HCL 200 MG TABLET PO SCH ×2 (08:24→17:32)
--- NOTE | 2017-08-30 09:20 | NUR ---
MS/RN PAGED DR CINTRON CALLED DR ICNTRON OFFICE TO RELAY PATIENTS LABS OF K= 2.9L, Mg= 1.5L. PER EXCHANGE DR BARNETT NUISANCE ANIMAL DAMAGE CONTROL AGENT AND THEY WILL PAGE DR BARNETT. AWAITING FOR CALL BACK.
--- NOTE | 2017-08-30 09:57 | NUR ---
MS/RN SPOKE WITH DR BARNETT SPOKE WITH DR BARNETT MAINTENANCE SPECIALIST FOR DR CITNRON AND RELAY BMP LAB RESULTS. PER DR BARNETT, DR STOUT IS DOING ROUNDS AT [facility], PLEASE MAKE HIM AWARE WHEN HE IS ON FLOOR. PATIENT NOTED WITH NO ACUTE DISTRESS. NO COMPLAIN OF PAIN OR DISCOMFORT. ALL NEEDS ATTENDED TO. CALL LIGHT WITHIN REACH. WILL CONTINUE TO MONITOR TO ENSURE SAFETY.
--- NOTE | 2017-08-30 10:40 | NUR ---
MS/RN SPOKE WITH DR STOUT SPOKE WITH DR STOUT AND RELAYED PATIENT'S LAB RESULT OF K=2.9L AND Mg 1.5L. PER DR STOUT HE WILL PUT IN ORDERS.
[2017-08-30] MEDS ORDERED: Magnesium 1GM/D5W 100ML PREMIX 1 G in PREMIX 1 EA IV SCH (11:00)
[2017-08-30] MEDS ORDERED: POTASSIUM CHLORIDE 20 MEQ TAB.PRT.SR PO ONE (11:00)
[2017-08-30] MEDS: Magnesium 1GM/D5W 100ML PREMIX 100 ML IV SCH ×2 (11:30→12:51)
[2017-08-30] MEDS ORDERED: SOD FERRIC GLUC 125 MG in IV NS 0.9% 100 ML IV SCH (14:00)
[2017-08-30] MEDS: SOD FERRIC GLUC 125 MG in IV NS 0.9% 100 ML IV SCH (14:10)
[2017-08-30 16:00] VITALS: BP 120/80
[2017-08-30] MEDS: TAMSULOSIN 0.4 MG CAP.SR.24H PO SCH (17:31)
--- NOTE | 2017-08-30 18:42 | NUR ---
MS/RN CLOSING NOTE PATIENT IN BED IN STABLE CONDITION. A/O X 4. NO SIGNS OF ACUTE DISTRESS. NO COMPLAIN OF PAIN OR DISCOMFORT. ALL NEEDS ATTENDED TO. CALL LIGHT WITHIN REACH. WILL ENDORSE TO NEXT SHIFT CONTINUITY OF CARE.
--- NOTE | 2017-08-30 19:20 | NUR ---
MS/RN NOTES RECEIVED PT. LYING IN BED RESTING. PT. IS EASILY AROUSABLE TO NAME. AWAKE, ALERT AND ORIENTED X3. BREATHING EVEN AND UNLABORED ON 2LPM O2 VIA NC. NO SOB, RESPIRATORY DISTRESS OR COMPLAINTS OF PAIN NOTED AT THIS TIME. PT. WITH RIGHT AC 20 GAUGE IV SALINE LOCK PRESENT, PATENT AND INTACT. PT. WITH LEFT FOREARM 20 GAUGE IV SALINE LOCK PRESENT, PATENT AND INTACT. PER DAYSHIFT NURSE PT. WILL BE GOING FOR US GUIDED PARACENTESIS TOMORROW AND THE CONSENT IS SIGNED AND IN PT. CHART. BED LOCKED AND IN LOWEST POSITION, SIDE RAILS UP X3, CALL LIGHT WITHIN REACH, WILL CONTINUE TO MONITOR.
[2017-08-30 20:00] VITALS: BP 124/75
[2017-08-31] MEDS: hydrALAZINE HCL 50 MG TABLET PO SCH ×2 (05:25→13:00)
--- NOTE | 2017-08-31 06:18 | NUR ---
MS/RN NOTES PT. IS LYING IN BED RESTING. BREATHING EVEN AND UNLABORED ON 2LPM O2 VIA NC. NO SOB, RESPIRATORY DISTRESS OR COMPLAINTS OF PAIN NOTED AT THIS TIME AND THROUGHOUT SHIFT. PT. WITH RIGHT AC 20 GAUGE IV SALINE LOCK PRESENT, PATENT AND INTACT. PT. WITH LEFT FOREARM 20 GAUGE IV SALINE LOCK PRESENT, PATENT AND INTACT. PT. WILL BE GOING FOR US GUIDED PARACENTESIS TODAY, CONSENT IS SIGNED AND PLACED IN PT. CHART. ALL PT. NEEDS MET. BED LOCKED AND IN LOWEST POSITION, SIDE RAILS UP X3, CALL LIGHT WITHIN REACH, WILL ENDORSE TO DAYSHIFT NURSE FOR CONTINUITY OF CARE.
[2017-08-31 06:27] LABS: EOSINOPHILS # (AUTO) 0.4 /CMM (0.0-0.7); EOSINOPHILS % (AUTO) 8.2 % (0.0-6.0); HEMATOCRIT 29 % (39-51); HEMOGLOBIN 9.2 g/dL (13.5-17.5); LYMPHOCYTES # (AUTO) 0.7 /CMM (0.8-4.8); LYMPHOCYTES % (AUTO) 13.5 % (20.0-44.0); MEAN CORPUSCULAR HEMOGLOBIN 30 PG (26.0-33.0); MEAN CORPUSCULAR HGB CONC 32 g/dl (31.0-36.0); MEAN CORPUSCULAR VOLUME 94 fL (80-96); MONOCYTES # (AUTO) 0.5 /CMM (0.1-1.30); MONOCYTES % (AUTO) 10.2 % (2.0-12.0); NEUTROPHILS # (AUTO) 3.4 /CMM (1.8-8.9); NEUTROPHILS % (AUTO) 68.1 % (43.0-81.0); PLATELET COUNT (AUTO) 147 /CMM (150-450); RDW COEFFICIENT OF VARIATION 17.3 (11.5-15.0); RED BLOOD CELL COUNT(AUTO) 3.05 MIL/uL (4.5-6.0)
[2017-08-31 06:56] LABS: CREATININE 3.1 mg/dL (0.6-1.3); MAGNESIUM 1.9 mg/dL (1.8-2.4); PHOSPHORUS 3.4 mg/dL (2.5-4.9)
[2017-08-31 08:00] VITALS: BP 102/75
[2017-08-31] MEDS: METOLAZONE 2.5 MG TABLET PO SCH (09:00)
[2017-08-31] MEDS: CARVEDILOL 12.5 MG TABLET PO SCH (09:00)
[2017-08-31] MEDS: ISOSORBIDE MONONITRATE (30MG) 30 MG TAB.SR.24H PO SCH (09:00)
[2017-08-31] MEDS: AMLODIPINE BESYLATE 5 MG TABLET PO SCH (09:00)
[2017-08-31] MEDS: AMIODARONE HCL 200 MG TABLET PO SCH (09:00)
[2017-08-31] MEDS: PANTOPRAZOLE 40 MG TABLET.DR PO SCH (09:06)
[2017-08-31] MEDS: ALLOPURINOL 100 MG TABLET PO SCH (09:06)
[2017-08-31] MEDS: SERTRALINE HCL 25 MG TABLET PO SCH (09:06)
[2017-08-31] MEDS: MEGESTROL ACETATE SUSP 400 MG/10 ML UDC PO SCH (09:06)
[2017-08-31] MEDS: FUROSEMIDE 20 MG TABLET PO SCH (09:07)
[2017-08-31] MEDS ORDERED: POTASSIUM CHLORIDE 20 MEQ TAB.PRT.SR PO ONE (10:30)
[2017-08-31 11:36] LABS: BAND % (MANUAL) 1 % (0.0-5.0); EOSINOPHILS % (MANUAL) 1 % (0-4); LYMPHOCYTES % (MANUAL) 1 % (16-48); MONOCYTES % (MANUAL) 14 % (0-11.0); NEUTROPHILS % (MANUAL) 83 (42-76)
--- NOTE | 2017-08-31 13:37 | NUR ---
MS/RN S/P PARACENTESIS PATIENT S/P PARACENTESIS, 2.5L REMOVED. TOLERATED WELL.
[2017-08-31] MEDS: SOD FERRIC GLUC 125 MG in IV NS 0.9% 100 ML IV SCH (14:15)
[2017-08-31] MEDS ORDERED: FLU VACC QS 2017-18(36MOS+)/PF 0.5 ML DISP.SYRIN IM ONE (15:00)
--- NOTE | 2017-08-31 17:40 | NUR ---
MS/CLIENT SUPPORT COORDINATOR PATIENT DISCHARGE HOME IN STABLE CONDITION. A/O X 4. NO SIGNS OF ACUTE DISTRESS. NO COMPLAIN OF PAIN OR DISCOMFORT. DISCHARGE INSTRUCTIONS AND TEACHINGS PROVIDED TO PATIENT, VERBALIZED UNDERSTANDING OF TEACHINGS. REPORT GIVEN TO CAROLYN LEW FROM [address] [place] [address] NURSING [facility]. ALL NEEDS ATTENDED TO. IV LINE AND NAME BAND REMOVED. LEFT VIA GURNEY IN STABLE CONDITION ACCOMPANIED BY 2 ASSOCIATE PRINCIPAL.
== END 2017-08-31 17:30 | DRG 432 ==
LOC: ER 19:53 → TELE 21:53 → MED 08-29 08:39
PROVIDERS: ADMIT Internal Medicine; ATTEND Internal Medicine
PROC: 0DB68ZX Excision of Stomach, Via Natural or Artificial Opening Endoscopic, Diagnostic (ICD-10-PCS; principal; 2017-08-28 18:09)
PROC: 0W9G3ZZ Drainage of Peritoneal Cavity, Percutaneous Approach (ICD-10-PCS; 2017-08-31)
DX: K74.60 Unspecified cirrhosis of liver (principal); K29.71 Gastritis, unspecified, with bleeding; I12.0 Hypertensive chronic kidney disease with stage 5 chronic kidney disease or end stage renal disease; K76.6 Portal hypertension; N18.5 Chronic kidney disease, stage 5; E83.42 Hypomagnesemia; I48.91 Unspecified atrial fibrillation; R18.8 Other ascites; K21.9 Gastro-esophageal reflux disease without esophagitis; Z95.0 Presence of cardiac pacemaker; N40.0 Benign prostatic hyperplasia without lower urinary tract symptoms; M10.9 Gout, unspecified; D50.0 Iron deficiency anemia secondary to blood loss (chronic); I25.5 Ischemic cardiomyopathy; Z79.899 Other long term (current) drug therapy; K31.89 Other diseases of stomach and duodenum
CPT/HCPCS: 36415; 76942-TC; 80048-TC; 80076-TC; 83540-TC; 83690-TC; 83735-TC; 84100-TC; 85025-TC; 85730-TC; 87081-TC; 88305-TC; 88313-TC; 88342; A4216; A4606; C9113; J2354; J2704; J2916; J3475; J3490; J7030; J7042; J7050; Q2036; Z7610

== ENCOUNTER 2017-11-30 20:31 | Emergency (ER) | payer OTHER, MEDICARE, MEDICAID ==
[~2017-11-30] VITALS: Ht 182.9 cm; Wt 93.0 kg
[~2017-11-30 20:31] MED LIST changes: +ASPI-1169 PO; -ASPI81TA2 PO
--- NOTE | 2017-11-30 20:45 | NUR ---
57 yo male bb ambulance. patient is a/o x 3, c/o fever, chills/ patient ds to er bed, skin warm and dry, resp even. patient gowned, placed on translator interpreter. awaiting orders from provider, will continue to monitor
[2017-11-30] MEDS ORDERED: IV NS 0.9% 1,000 ML BAG IV ONE (21:00)
--- NOTE | 2017-11-30 21:12 | NUR ---
emt at bed side for ekg
[2017-11-30 21:19] LABS: BASOPHILS % (AUTO) 0.6 % (0.0-2.0); EOSINOPHILS # (AUTO) 0.3 /CMM (0.0-0.7); EOSINOPHILS % (AUTO) 5.6 % (0.0-6.0); HEMATOCRIT 30 % (39-51); HEMOGLOBIN 9.9 g/dL (13.5-17.5); LYMPHOCYTES # (AUTO) 0.4 /CMM (0.8-4.8); LYMPHOCYTES % (AUTO) 7.9 % (20.0-44.0); MEAN CORPUSCULAR HEMOGLOBIN 31 PG (26.0-33.0); MEAN CORPUSCULAR HGB CONC 33 g/dl (31.0-36.0); MEAN CORPUSCULAR VOLUME 92 fL (80-96); MONOCYTES # (AUTO) 0.5 /CMM (0.1-1.30); MONOCYTES % (AUTO) 11.3 % (2.0-12.0); NEUTROPHILS # (AUTO) 3.6 /CMM (1.8-8.9); NEUTROPHILS % (AUTO) 74.6 % (43.0-81.0); PLATELET COUNT (AUTO) 163 /CMM (150-450); RDW COEFFICIENT OF VARIATION 16.2 (11.5-15.0); RED BLOOD CELL COUNT(AUTO) 3.25 MIL/uL (4.5-6.0); WHITE BLOOD COUNT (AUTO) 4.8 K/uL (4.3-11.0)
[2017-11-30 21:26] LABS: INR 1.13 (0.87-1.13)
[2017-11-30 21:30] LABS: TROPONIN I 0.113 ng/mL (0.00-0.056)
[2017-11-30 21:52] LABS: CALCIUM, SERUM 8.7 mg/dL (8.5-10.1); CREATININE 3.2 mg/dL (0.6-1.3); POTASSIUM 4.5 mmol/L (3.5-5.1)
[2017-11-30 21:58] LABS: ALBUMIN 3.4 g/dL (3.4-5.0); BILIRUBIN,DIRECT 0.9 mg/dL (0.0-0.2); BILIRUBIN,TOTAL 2.7 mg/dL (0.2-1.0); TOTAL PROTEIN, SERUM 6.8 g/dL (6.4-8.2)
[2017-11-30] MEDS ORDERED: MORPHINE SULFATE INJ 4 MG/ML DISP.SYRIN ONE (22:04)
[2017-11-30 22:13] LABS: APPEARANCE,URINE CLEAR (CLEAR); BILIRUBIN,URINE NEGATIVE (NEGATIVE); BLOOD, URINE NEGATIVE Ery/uL (NEGATIVE); COLOR,URINE YELLOW (YELLOW); KETONES,URINE NEGATIVE (NEGATIVE); LEUKOCYTE ESTERASE ,URINE NEGATIVE (NEGATIVE); NITRITE, URINE NEGATIVE (NEGATIVE); PH,URINE 5.5 (5.0-8.0); PROTEIN,URINE NEGATIVE (NEGATIVE); UGLUCOSE NEGATIVE (NEGATIVE); UROBILINOGEN,URINE 0.2 EU/dL (0.2)
--- NOTE | 2017-11-30 22:28 | NUR ---
[facility] ETA OF 0000 WAS GIVEN. TRIP#[id number]
[2017-11-30] MEDS ORDERED: MORPHINE SULFATE INJ 2 MG/ML DISP.SYRIN IV ONE (22:30)
--- NOTE | 2017-11-30 23:04 | NUR ---
Patient discharged to home in stable condition. Written and verbal after care instructions given. Patient verbalizes understanding of instruction.IV removed. Catheter intact and site benign. Pressure and 4x4 applied to site. No bleeding noted.
--- NOTE | 2017-11-30 23:04 | NUR ---
report was given to EMT for transport back to SNF
[2017-11-30 23:05] VITALS: BP 123/77
== END 2017-11-30 23:06 | disposition home or self-care (01) ==
LOC: ER 20:33
DX: R41.82 Altered mental status, unspecified (principal); D64.9 Anemia, unspecified; K21.9 Gastro-esophageal reflux disease without esophagitis; K74.60 Unspecified cirrhosis of liver; M10.9 Gout, unspecified; N40.0 Benign prostatic hyperplasia without lower urinary tract symptoms; R18.8 Other ascites; I12.0 Hypertensive chronic kidney disease with stage 5 chronic kidney disease or end stage renal disease; N18.6 End stage renal disease; Z99.2 Dependence on renal dialysis; Z79.82 Long term (current) use of aspirin; Z95.0 Presence of cardiac pacemaker
CPT/HCPCS: 36415; 71045-TC; 80048-TC; 80076-TC; 81000-TC; 83605-TC; 84484-TC; 85025-TC; 85730-TC; 87040-TC; 87081-TC; 87086-TC; 87400; A4606; J2270; Z7610

== ENCOUNTER 2018-03-02 13:36 | Emergency (ER) | payer OTHER, MEDICARE, MEDICAID ==
[~2018-03-02] VITALS: Ht 170.2 cm; Wt 117.9 kg
[~2018-03-02 13:36] MED LIST changes: -AMIO200T2 PO; +AMIO200T4 PO; -AMLO5TAB2 PO; +AMLO5TAB7 PO
--- NOTE | 2018-03-02 13:52 | NUR ---
[facility] D/T ABD DISTENTION
[2018-03-02 14:57] LABS: BASOPHILS # (AUTO) 0.2 /CMM (0.0-0.2); BASOPHILS % (AUTO) 3.6 % (0.0-2.0); EOSINOPHILS % (AUTO) 0.1 % (0.0-6.0); HEMATOCRIT 28 % (39-51); HEMOGLOBIN 9.2 g/dL (13.5-17.5); LYMPHOCYTES # (AUTO) 0.5 /CMM (0.8-4.8); LYMPHOCYTES % (AUTO) 8.4 % (20.0-44.0); MEAN CORPUSCULAR HGB CONC 33 g/dl (31.0-36.0); MEAN CORPUSCULAR VOLUME 102 fL (80-96); MONOCYTES # (AUTO) 0.4 /CMM (0.1-1.30); MONOCYTES % (AUTO) 6.4 % (2.0-12.0); NEUTROPHILS # (AUTO) 5.2 /CMM (1.8-8.9); NEUTROPHILS % (AUTO) 81.5 % (43.0-81.0); PLATELET COUNT (AUTO) 103 /CMM (150-450); RDW COEFFICIENT OF VARIATION 16.2 (11.5-15.0); RED BLOOD CELL COUNT(AUTO) 2.74 MIL/uL (4.5-6.0); WHITE BLOOD COUNT (AUTO) 6.3 K/uL (4.3-11.0)
--- NOTE | 2018-03-02 15:05 | NUR ---
ASSUMED CARE OF PT.
[2018-03-02 15:14] LABS: CREATININE 3.7 mg/dL (0.6-1.3); POTASSIUM 4.1 mmol/L (3.5-5.1)
[2018-03-02 15:17] LABS: PHOSPHORUS 3.2 mg/dL (2.5-4.9)
[2018-03-02 15:24] LABS: INR 1.21 (0.85-1.15)
[2018-03-02 15:31] LABS: ALBUMIN 2.9 g/dL (3.4-5.0); BILIRUBIN,DIRECT 0.7 mg/dL (0.0-0.2); BILIRUBIN,TOTAL 1.7 mg/dL (0.2-1.0); TOTAL PROTEIN, SERUM 5.9 g/dL (6.4-8.2)
--- NOTE | 2018-03-02 15:40 | NUR ---
US TECH AT THE BEDSIDE
[2018-03-02 16:06] LABS: BAND % (MANUAL) 10 % (0.0-5.0); LYMPHOCYTES % (MANUAL) 18 % (16-48); MONOCYTES % (MANUAL) 8 % (0-11.0); NEUTROPHILS % (MANUAL) 64 (42-76)
--- NOTE | 2018-03-02 16:09 | NUR ---
DR. GONZALEZ IS AT THE BEDSIDE FOR PARACENTISIS.
--- NOTE | 2018-03-02 16:50 | NUR ---
PARACENTISIS IS STILL IN PROGRESS. US TECH AT THE BEDSIDE MONITORING DRAINAGE.
--- NOTE | 2018-03-02 17:03 | NUR ---
5 BOTTLES OF FLUID REMOVED FROM ABDOMEN. REMOVAL STILL IN PROCESS.
[2018-03-02] MEDS ORDERED: ALBUMIN 5% 12.5 GM in PREMIX 1 EA IV ONE (17:30)
--- NOTE | 2018-03-02 17:30 | NUR ---
PARACENTISIS FINISHED. 7 BOTTLES IN TOTAL REMOVED. ALBUMIN ORDERED FROM PHARMACY
--- NOTE | 2018-03-02 18:33 | NUR ---
CALLED [facility] FOR TRANSPORT ETA OF 1999 WAS GIVEN. TRIP#[id number]
--- NOTE | 2018-03-02 18:58 | NUR ---
PT IS EATING DINNER AND TOLERATING PO WELL.
--- NOTE | 2018-03-02 19:55 | NUR ---
ALBUMIN FINISHED. IV FLUSED WITH 10ML NS. PT APPEARS TO BE RESTING COMFORTABLY. VSS.
--- NOTE | 2018-03-02 20:21 | NUR ---
REPORT GIVEN TO KRISTINE JI FOR [facility]. Patient discharged to home in stable condition. Written and verbal after care instructions given. Patient verbalizes understanding of instruction. COPY OF ALL LABS GIVEN TO EMT. PT LEFT VIA AMBULANCE
[2018-03-02 20:34] VITALS: BP 111/84
== END 2018-03-02 20:35 | disposition home or self-care (01) ==
LOC: ER 13:38
DX: R18.8 Other ascites (principal); D64.9 Anemia, unspecified; D69.6 Thrombocytopenia, unspecified; I13.2 Hypertensive heart and chronic kidney disease with heart failure and with stage 5 chronic kidney disease, or end stage renal disease; I50.9 Heart failure, unspecified; N18.6 End stage renal disease; I25.10 Atherosclerotic heart disease of native coronary artery without angina pectoris; K21.9 Gastro-esophageal reflux disease without esophagitis; M10.9 Gout, unspecified; Z99.2 Dependence on renal dialysis; Z95.0 Presence of cardiac pacemaker; Z79.82 Long term (current) use of aspirin
CPT/HCPCS: 36415; 49083 ×2; 71045; 80048; 80076; 82962; 83735; 83880; 84100; 85025; 85730; 93005; 96360; 96361; 99285; A4216; A4606; P9045; Z7610; 76942-TC